=== PATIENT | female | born 1955 | race Caucasian/White ===

== ENCOUNTER 2016-08-17 13:31 | Inpatient (IN) ==
[2016-08-17 14:06] LABS: MANUAL DIFF NEEDED? NO
[2016-08-17 14:12] LABS: BASO% 0.5 % (0.0-0.8); EOS# 0.13 X1000 (0.0-0.7); EOS% 1.5 % (0.0-10.0); HEMATOCRIT 38.1 % (37.0-47.0); HEMOGLOBIN 12.2 g/dL (12.0-16.0); IMM GRAN# 0.04 X1000 (0.0-0.04); IMM GRAN% 0.5 % (0.0-0.5); LYMPH# 1.45 X1000 (1.2-3.4); LYMPH% 16.6 % (20.5-51.1); MCH 28.6 PG (27-31); MCV 89.4 FL (81-99); MONO# 0.38 X1000 (0.11-0.59); MONO% 4.4 % (1.7-9.3); MPV 11.5 FL (7.4-10.4); NEUT% 76.5 % (42.2-75.2); PLT 131 X1000 (130-400); RBC 4.26 XMIL (4.2-5.4)
[2016-08-17 14:21] LABS: INR 0.96; PTT 27.8 Seconds (22.0-36.0)
[2016-08-17 14:25] LABS: AGAP 8; ALBUMIN 2.9 g/dL (3.5-5.0); ALKALINE PHOSPHATASE 83 U/L (32-104); BUN 16 mg/dL (8-22); CALCIUM 8.1 mg/dL (8.8-10.2); CHLORIDE 104 mmol/L (98-107); CK PROFILE 54 U/L (24-173); COSMO 281; GOT 12 U/L (10-30); GPT 9 U/L (10-36); MAGNESIUM 1.8 mg/dL (1.5-2.7); POTASSIUM 5.2 mmol/L (3.5-5.1); SODIUM 134 mmol/L (136-145); TCO2 22 mmol/L (25-35); TOTAL BILIRUBIN 0.26 mg/dL (0.20-1.00); TOTAL PROTEIN 6.2 g/dL (6.3-8.3)
--- NOTE | 2016-08-17 14:26 | Diag Imaging Result Doc PS360 ---
EXAM: CHEST-2 VIEWS HISTORY: CP TECHNIQUE: COMPARISON: 01/15/2014 FINDINGS: There is a left-sided pacemaker. The heart isn't enlarged. There is vascular distention. No consolidation. No pleural effusions. No free air beneath the diaphragm. IMPRESSION: Cardiomegaly with pulmonary edema Electronically signed by Chase Reed 08/17/2016 2:23 PM
[2016-08-17] MEDS ORDERED: LASIX IV ONE (15:03)
--- NOTE | 2016-08-17 15:14 | PROVIDER DOCUMENTATION ---
HPI-Respiratory General - General Chief Complaint: Edema Stated Complaint: fluid retention Time Seen by Provider: 08/17/16 14:44 Allergies/Adverse Reactions: Patient Allergies Allergy/AdvReac Type Severity Reaction Status Date / Time clopidogrel bisulfate * Allergy NAUSEA Verified 01/15/14 10:14 [From Plavix] promethazine HCl * AdvReac Severe NAUSEA Verified 01/15/14 10:14 [From Phenergan] Home Medications: Home Medication List Medication Instructions Recorded Confirmed Last Taken Type Hydrocodone/Acetaminophen [Lortab 1 each PO Q4-6H PRN PRN #12 tablet 04/24/12 Unknown Rx 5-500 Tablet] Isosorbide Dinitrate 60 mg PO DAILY 04/24/12 01/15/14 04/21/12 06:00 History Tramadol [Ultram] 50 mg PO Q6H PRN PRN #15 tablet 02/16/13 01/15/14 Unknown Rx Albuterol Sulfate [Albuterol 8.5 gm IH 4XDAY PRN #1 hfa.aer.ad 01/13/1401/14/14 12:00 Rx Sulfate Hfa] Amoxicillin 1,000 mg PO Q8HR #60 capsule 01/13/14 01/15/14 01/15/14 09:00 Rx Glipizide 5 mg PO DAILY #30 tablet 01/13/14 01/15/14 Unknown Rx Lisinopril/Hydrochlorothiazide 1 each PO DAILY #30 tablet 01/13/14 01/15/1406/25 09:00 Rx [Lisinopril-Hctz 10-12.5 mg Tab] Metformin HCl 500 mg PO BID #60 tablet 01/13/14 01/15/14 Unknown Rx Prednisone 10 mg PO Q8HR #30 tablet 01/13/14 01/15/14 Unknown Rx Benzonatate [Tessalon] 100 mg PO TID PRN PRN #21 capsule 01/15/14 Unknown Rx Levofloxacin [Levaquin] 750 mg PO DAILY #6 tablet 01/15/14 Unknown Rx - History of Present Illness-Resp Nature of Presenting Problem: 61 y/o WF with a PMHx of CAD requiring stent placement, CHF with pacemaker, NIDDM, COPD and Morbid Obesity that presents to the Ed with a 2 month h/o lower extremity swelling that has worsened over the past month. Pt states worsening dyspnea upon exertion, productive cough with yellow sputum production and occasional chest pain. Reports that she does use 3L of oxygen at all times. No other issues reported. Severity in ED: reports: mild Onset/Duration: reports: other (2 months with worsening over the past month) Timing: reports: getting worse Cough Quality/Degree: reports: mild, productive cough, sputum Episode Frequency: chronic episodes Modifying Factors: improves with: exertion Associated Symptoms: reports: chest pain/soreness (with cough), shortness of breath Review of Systems - Adult - REVIEW OF SYSTEMS - ADULT Constitutional: reports: no symptoms reported, fatique. denies: fever Eyes: reports: no symptoms reported. denies: dry eyes, double vision, redness Ears, Nose, Mouth & Throat: reports: no symptoms reported. denies: nose pain, loose teeth Respiratory: reports: cough, shortness of breath Gastrointestinal: reports: no symptoms reported Genitourinary: reports: no symptoms reported Musculoskeletal: reports: no symptoms reported Integumentary: reports: no symptoms reported Neurological: reports: no symptoms reported Psychiatric: reports: no symptoms reported Endocrine: reports: no symptoms reported Hematologic/Lymphatic: reports: no symptoms reported Allergic/Immunologic: reports: no symptoms reported Past History - Adult - PAST MEDICAL HISTORY-ADULT Review of Records: reports: Old Records Reviewed, Nursing Assessment Review, Medications Reviewed Major Childhood Illnesses: reports: denies history Cardiovascular: reports: CAD, CHF, HTN, hyperlipidemia, pacemaker Respiratory: reports: COPD Gastrointestinal: reports: GERD Neurological: reports: TIA Endocrine/Immune: reports: Diabetes, thyroid disorder - PRIOR SURGERIES/PROCEDURES Surgical/Procedure History: reports: cardiac stent, pacemaker - IMMUNIZATION STATUS Childhood Immunizations: UTD, See Nurse Assessment Flu Vaccine: See Nurse Assessment - SOCIAL HISTORY Smoking: cigarettes, greater than 1 pack/day Substance Use: none/never Alcohol Use Frequency: never Living Situation: family Physical Exam-General - PHYSICAL EXAM-ADULT Initial Vital Signs Reviewed: Yes - CONSTITUTIONAL General Appearance: appears well, alert, no apparent distress. negative: slow to respond, obtunded - EYES Eyes: PERRL/EOMI, pink conjunctivae. negative: sclera injected, scleral icterus - HEAD, EARS, NOSE, MOUTH & THROAT HENMT: normocephalic/atraumatic, moist mucous membranes, normal ENT inspection. negative: pharyngeal erythema, tonsillar exudate - NECK Neck: non-tender, full range of motion, supple. negative: C-spine tenderness - RESPIRATORY Respiratory: chest non-tender, lungs clear, rhonchi. negative: crackles, rales , stridor, wheezing - CARDIOVASCULAR Cardiovascular: normal peripheral pulses, regular rate, rhythm, no edema, no murmur - GASTROINTESTINAL (ABDOMEN) Abdominal Exam: normal bowel sounds, non tender, soft. negative: distended, guarding, rigid, rebound, tenderness - LYMPHATIC Lymphatic: no adenopathy - MUSCULOSKELETAL Back Exam: negative: normal inspection, no CVA tenderness, muscle spasm, swelling Extremity: normal range of motion, non-tender. negative: deformity, erythema - SKIN Integumentary: normal color, normal turgor, warm/dry. negative: swelling, tenderness - NEUROLOGIC Neurologic: underground utility locator II-XII nml as tested, grossly normal, no motor/sensory deficits . negative: focal weakness, motor weakness, sensory deficit - PSYCHIATRIC Psych/Mental Status: normal mood/affect, normal thought content, normal thought process, oriented x 3. negative: anxious, disheveled, paranoid Progress - PLAN OF CARE/RESULTS Progress/Plan/Lab Results: Vital Signs - 8 hr 08/17/16 13:35 Temperature 98.5 F Pulse Rate 79 Respiratory Rate 16 Blood Pressure 147/53 O2 Sat by Pulse Oximetry 92 L Laboratory Results - last 24 hr 08/17/16 08/17/16 08/17/16 13:58 13:58 13:58 WBC 8.72 RBC 4.26 Hgb 12.2 Hct 38.1 MCV 89.4 MCH 28.6 MCHC 32.0 L RDW Std Deviation 14.5 Plt Count 131 MPV 11.5 H Immature Gran % (Auto) 0.5 Neut % (Auto) 76.5 H Lymph % (Auto) 16.6 L Campbell % (Auto) 4.4 Eos % (Auto) 1.5 Baso % (Auto) 0.5 Immature Gran # (Auto) 0.04 Neut # (Auto) 6.68 H Lymph # (Auto) 1.45 Campbell # (Auto) 0.38 Eos # (Auto) 0.13 Baso # (Auto) 0.04 PT INR PTT (Actin FS) D-Dimer 0.63 H Sodium 134 L Potassium 5.2 H Chloride 104 Carbon Dioxide 22 L Anion Gap 8 BUN 16 Creatinine 0.9 Estimated GFR/1.73 m2 > 60 BUN/Creatinine Ratio 18 Glucose 301 H Calculated Osmolality 281 Calcium 8.1 L Magnesium 1.8 Total Bilirubin 0.26 AST 12 ALT 9 L Alkaline Phosphatase 83 Creatine Kinase 54 Troponin T Jog-E-Sarbd[place]ak Pept Total Protein 6.2 L Albumin 2.9 L Globulin 3.3 Albumin/Globulin Ratio 0.9 08/17/16 08/17/16 08/17/16 13:58 13:58 13:58 WBC RBC Hgb Hct MCV MCH MCHC RDW Std Deviation Plt Count MPV Immature Gran % (Auto) Neut % (Auto) Lymph % (Auto) Campbell % (Auto) Eos % (Auto) Baso % (Auto) Immature Gran # (Auto) Neut # (Auto) Lymph # (Auto) Campbell # (Auto) Eos # (Auto) Baso # (Auto) PT 10.0 INR 0.96 PTT (Actin FS) 27.8 D-Dimer Sodium Potassium Chloride Carbon Dioxide Anion Gap BUN Creatinine Estimated GFR/1.73 m2 BUN/Creatinine Ratio Glucose Calculated Osmolality Calcium Magnesium Total Bilirubin AST ALT Alkaline Phosphatase Creatine Kinase Troponin T < 0.010 Mps-V-Tfznivrlpil Pept 1061 H Total Protein Albumin Globulin Albumin/Globulin Ratio Orders Category Date Time Status Cardiac Monitoring DIRECTED Care 08/17/16 13:59 Active Oxygen Therapy- ED Nursing DIRECTED Care 08/17/16 13:59 Active Saline Loc NOW Care 08/17/16 13:59 Active CHEST-2 VIEWS [RAD] Stat Exams 08/17/16 13:59 Completed CBC WITH ELECTRONIC DIFF [HEME] Stat Lab 08/17/16 13:58 Completed CK PROFILE [SP CHEM] Stat Lab 08/17/16 13:58 Completed COMPREHENSIVE METABOLIC PANEL [CHEM] Stat Lab 08/17/16 13:58 Completed D-DIMER [CHEM] Stat Lab 08/17/16 13:58 Completed MAGNESIUM [CHEM] Stat Lab 08/17/16 13:58 Completed PRO B-NATRIURETIC PEPTIDE Stat Lab 08/17/16 13:58 Completed PROTIME WITH INR [COAG] Stat Lab 08/17/16 13:58 Completed PTT [COAG] Stat Lab 08/17/16 13:58 Completed TROPONIN T Stat Lab 08/17/16 13:58 Completed Furosemide [Lasix] Med 08/17/16 15:03 Once 40 mg IV NOW ONE EKG [EKG] Stat Ther 08/17/16 13:59 Ordered Result Diagrams: 08/17/16 13:58 08/17/16 13:58 - CONSULTS/PCP/HOSPITALIST Notification #1 *Consult/PCP/Hospitalist*: Mrs. Gallardo Time Discussed: 15:17 Consult Disposition: Admit Departure - Departure Date of Disposition Decision: 08/17/16 Time of Disposition Decision: 15:17 DIAGNOSIS: Acute exacerbation of CHF (congestive heart failure) Qualifiers: Congestive heart failure type: unspecified congestive heart failure type Qualified Code(s): I50.9 - Heart failure, unspecified Disposition: ADMITTED INPATIENT 09 Certified Medical Emergency: Emergent Condition: Good Referrals and Follow-Ups: None,PCP [Primary Care Provider] - - Critical Care Note This patient required my direct & personal management of CC.: No
--- NOTE | 2016-08-17 15:33 | EKG Report ---
Test Performed on : 08/17/2016 1:44:23 PM Test Reason : Chest Pain Blood Pressure : / mmHG Vent. Rate : 071 BPM Atrial Rate : 071 BPM P-R Int : 168 ms QRS Dur : 078 ms QT Int : 382 ms P-R-T Axes : 037 018 136 degrees QTc Int : 415 ms Normal sinus rhythm. Cannot rule out Inferior infarct (cited on or before 15-JAN-2014) Possible Anterior infarct , age undetermined ST \T\ T wave abnormality, consider lateral ischemia Abnormal ECG When compared with ECG of 15-JAN-2014 10:51, T wave inversion more evident in Lateral leads Unconfirmed Result
--- NOTE | 2016-08-17 15:38 | ED EKG INTERP ---
This chart was entered by Sarah Arias Scribe, acting as scribe for Dago Castro MD. EKG Interpretation - EKG Time of EKG reading by physician:: 13:44 EKG Read and Signed by:: Dago Castro EKG Interpretation (*Must complete 3 of following elements*): Abnormal Rate: 71 Rhythm: NSR Hudson: normal QRS: other (CANNOT RULE OUT INFERIOR INFARCT OR POSS ANTERIOR INFARCT, AGE UNDETERMINED, ST & T WAVE ABNORMALITY, CONSIDER LATERAL ISCHEMIA Q 2,3,AVF OLD ND, T-WAVE INVERSION1, AVL -?LATERAL ISCHEMIA - TANA) This chart was documented by the indicated scribe, (Sarah Arias Scribe) and accurately reflects the services I performed and decisions made by me, Dago Castro MD, as attested by the provider's signature.
--- NOTE | 2016-08-17 16:46 | HISTORY AND PHYSICAL ---
HISTORY OF PRESENT ILLNESS: Ms. Marti says she has been in [place], just recently came back about a month ago. She stated that a couple months ago she was in [place] and she was treated for pneumonia. She has noted the last 2 weeks though she has had increased swelling, progressively increased dyspnea on exertion, increased orthopnea, and some paroxysmal nocturnal dyspnea. She has had a little bit chest pain off and on. Denies any fever or chills. PAST MEDICAL HISTORY: 1. COPD. 2. I think she has had a history of congestive heart failure by report. 3. History of diabetes mellitus type 2. 4. History of hypertension. 5. History of hypercholesterolemia. ALLERGIES: Clopidogrel or Plavix, levofloxacin, metformin, trazodone, and apparently she has more. FAMILY HISTORY: Noncontributory. SOCIAL HISTORY: History of smoking. No alcohol, no illicit drugs. REVIEW OF SYSTEMS: General: She is steadily gaining some weight, although she has not measured or recorded, but she feels like she gained fluid weight, increased pedal edema. HEENT: Unremarkable. Respiratory: Increased work of breathing. Increased dyspnea. Increased orthopnea. Paroxysmal nocturnal dyspnea. GI/: No change in bowels. No gross hematuria or dysuria. PHYSICAL EXAM IN THE EMERGENCY ROOM: Vital signs: Temperature 98.5 degrees, pulse 79, respirations 16, blood pressure 147/53. HEENT: Pupils are equal and round. CVP is about 10 cm water pressure from angle of Jalen. Lungs: With rales at the bases. Decreased breath sounds both bases. No wheezes. Cardiovascular: PMI diffuse. Regular rhythm and rate. Abdomen: Soft. No hepatojugular reflux. Extremities: With 3+ edema, more prominent in the left than the right. Height is 5 feet 1 inch. Weight is 157 pounds. DIAGNOSTIC DATA: Labs: White count 8720, hematocrit 38, platelet count 331,000. Sodium 134, potassium 5.2, chloride 104, bicarb 22, BUN 16, creatinine 0.9, blood sugar 301. Calculated osmolality 281. CPK is 54, troponin less than 0.01. ProBNP was 1061. Albumin 2.9. PT was 10, PTT was 27. Chest x-ray: Cardiomegaly with pulmonary edema and vascular distention consistent with pulmonary venous hypertension. ASSESSMENT AND PLAN: 1. Congestive heart failure. Suspect this is diastolic congestive heart failure. I will recheck an echocardiogram, I do not know if we have documented it in the last couple years, and look at left ventricular function. We will diurese with Lasix 40 mg IV q.12 hours, give her supplemental O2, and watch her afterload and preload. I will continue her previous medications of lisinopril-hydrochlorothiazide combination 50 mg 10/12.5 daily, her magnesium supplement. She is on isosorbide mononitrate so I presume she has underlying coronary artery disease as well. We will try and obtain some more history on this. She has been having chest pain. I do not see any evidence that she is having active ischemia. We will check serial EKGs and cardiac enzymes. 2. Chronic obstructive pulmonary disease exacerbation. 3. Hypertension. 4. Diabetes mellitus type 2. We will check pattern sugars, put her on sliding scale, supplement electrolytes as needed. cc: Deni Nowak MD
[2016-08-17] MEDS ORDERED: NITROGLYCERIN SL PRN (17:06)
[2016-08-17] MEDS: LASIX IV SCH (18:53)
[2016-08-17] MEDS ORDERED: NICODERM PATCH TD PRN (18:54)
[2016-08-17] MEDS ORDERED: ADVAIR 250/50 DISKUS INH SCH (19:30)
[2016-08-18] MEDS: LASIX IV SCH ×2 (04:53→18:23)
[2016-08-18 06:07] LABS: MANUAL DIFF NEEDED? NO
[2016-08-18 06:28] LABS: BASO% 0.2 % (0.0-0.8); EOS# 0.12 X1000 (0.0-0.7); EOS% 1.2 % (0.0-10.0); HEMOGLOBIN 12.3 g/dL (12.0-16.0); IMM GRAN# 0.05 X1000 (0.0-0.04); IMM GRAN% 0.5 % (0.0-0.5); LYMPH# 1.64 X1000 (1.2-3.4); LYMPH% 16.9 % (20.5-51.1); MCH 28.5 PG (27-31); MCHC 31.5 g/dL (33-37); MCV 90.3 FL (81-99); MONO# 0.59 X1000 (0.11-0.59); MONO% 6.1 % (1.7-9.3); MPV 11.7 FL (7.4-10.4); NEUT% 75.1 % (42.2-75.2); PLT 146 X1000 (130-400); RBC 4.32 XMIL (4.2-5.4)
[2016-08-18] MEDS: HUMALOG SUBQ SCH ×4 (06:40→22:42)
[2016-08-18 06:50] LABS: AGAP 8; BUN 20 mg/dL (8-22); CALCIUM 8.9 mg/dL (8.8-10.2); CHLORIDE 105 mmol/L (98-107); COSMO 285; MAGNESIUM 1.6 mg/dL (1.5-2.7); SODIUM 141 mmol/L (136-145); TCO2 28 mmol/L (25-35)
[2016-08-18 06:53] LABS: HEMOGLOBIN A1C 9.9 % (4.8-6.0)
[2016-08-18] MEDS ORDERED: VENTOLIN HFA INH SCH (07:30)
[2016-08-18] MEDS ORDERED: AMARYL PO SCH (08:00)
[2016-08-18] MEDS: KLOR-CON PO SCH (08:10)
[2016-08-18] MEDS: PRINZIDE 10/12.5MG PO SCH (08:10)
[2016-08-18] MEDS: COREG PO SCH (08:11)
[2016-08-18] MEDS: SINGULAIR PO SCH (08:11)
[2016-08-18] MEDS: ASPIRIN PO SCH (08:11)
[2016-08-18] MEDS: MAG-OX PO SCH (08:11)
[2016-08-18] MEDS: IMDUR PO SCH (08:11)
[2016-08-18] MEDS: NEXIUM PO SCH (08:11)
--- NOTE | 2016-08-18 11:58 | PROGRESS NOTE ---
DATE: 08/18/2016 SUBJECTIVE: Ms. Marti is sitting up in bed, in no acute distress. OBJECTIVE: Vital Signs: Temperature is 97.3 degrees, heart rate 60, respirations 17, blood pressure 163/76, O2 is 97% on 3 L nasal cannula. HEENT: Atraumatic, normocephalic. PERRLA. Neck: Supple. Trachea midline. CV: No murmurs, gallops, or rubs noted. Pulmonary: Bilateral breath sounds decreased in bilateral bases. No wheezes. Abdomen: Soft, nontender. Positive bowel sounds in 4 quadrants. Extremities: There is 1 to 2+ edema, improved from yesterday on admission. Laboratory Data: White count 9, hemoglobin 12, hematocrit 39, platelet count is 146,000. Chemistry: Sodium 141, potassium 5, BUN 20, creatinine 0.9, blood glucose was 124. Hemoglobin A1c was 9.9. ProBNP 6098. TSH was 1.2. ASSESSMENT AND PLAN: 1. Congestive heart failure, suspected diastolic heart failure. Waiting on echocardiogram. Continue with diuresis. On supplemental oxygen. 2. Chronic obstructive pulmonary disease exacerbation, improved. 3. Hypertension. Continue home medications. 4. Diabetes mellitus type 2, uncontrolled. We will continue patterned blood sugars and sliding scale insulin. 5. Coronary artery disease. 6. Gastroesophageal reflux disease. Continue proton pump inhibitor. 7. Hyperlipidemia. Continue statin. 8. Transient ischemic attack history. 9. Hypothyroidism. However, I do not see any thyroid medication that the patient has come in on. 10. Further recommendations to follow diagnostic data as well as physician evaluation. Dictated by INDY Rae for Deni Nowak MD cc: Deni Nowak MD
[2016-08-18] MEDS: MOTRIN PO PRN ×2 (13:49→21:05)
--- NOTE | 2016-08-18 16:12 | ECHO REPORT ---
ORDER DATE: 08/18/2016 INTERPRETING PHYSICIAN: Dr. Cruz Lo ECHOCARDIOGRAPHIC MEASUREMENTS: Interventricular septum: 1.6 cm. Left ventricular posterior wall: 1.3 cm. Diastolic diameter: 4.5 cm. Left atrium: 5 cm. Aortic root: 3.3 cm. SUMMARY OF THE 2-DIMENSIONAL IMAGING: Technically suboptimal study. Very poor acoustic window. Normal left ventricular cavity size. There is left ventricular hypertrophy. Estimated ejection fraction of 60%. Endocardium not well visualized in all views. Mitral valve was normal. Tricuspid valve normal. Pulmonic valve not well visualized. Aortic valve leaflets are trileaflet. There is peak velocity across the aortic valve less than 2 m/sec. There is no aortic stenosis or regurgitation. There is trace tricuspid regurgitation. Trace mitral regurgitation. Peak velocity across the tricuspid valve less than 2 m/sec. There is no pericardial effusion. cc: MD Deni Lane MD
[2016-08-18] MEDS: PRAVACHOL PO SCH (20:51)
[2016-08-19] MEDS: LASIX IV SCH ×2 (05:38→17:15)
[2016-08-19] MEDS: NEXIUM PO SCH (06:01)
[2016-08-19] MEDS: HUMALOG SUBQ SCH ×4 (06:13→21:17)
[2016-08-19 07:11] LABS: CALCIUM 8.7 mg/dL (8.8-10.2); POTASSIUM 4.1 mmol/L (3.5-5.1)
[2016-08-19] MEDS: ASPIRIN PO SCH (08:20)
[2016-08-19] MEDS: MAG-OX PO SCH (08:20)
[2016-08-19] MEDS: SINGULAIR PO SCH (08:20)
[2016-08-19] MEDS: COREG PO SCH (08:20)
[2016-08-19] MEDS: KLOR-CON PO SCH (08:20)
[2016-08-19] MEDS: IMDUR PO SCH (08:20)
[2016-08-19] MEDS: PRINZIDE 10/12.5MG PO SCH (08:20)
[2016-08-19] MEDS: CLARITIN PO SCH (11:39)
--- NOTE | 2016-08-19 13:57 | PROGRESS NOTE ---
DATE: 08/19/2016 SUBJECTIVE: She is breathing better, doing better. She does feel like her legs are going down, her swelling. She is not having any chest pain at this point. OBJECTIVE: Vital signs: Temp 97.7 degrees, pulse 63, respirations 20, blood pressure 155/80. HEENT: Pupils are equal, round. Lungs: Clear in all lung velez. Cardiovascular: Regular rhythm and rate without murmur or S3. Abdomen: Soft. Skin: Warm and dry. : Urine output collected was over 800, almost 900 mL. LABS: Reviewed from yesterday. Blood sugars are well controlled. Creatinine 1.1. ASSESSMENT AND PLAN: 1. Congestive heart failure. Suspect diastolic heart failure. Her echocardiogram was done yesterday and read. Technically suboptimal study. Very poor acoustic windows. Normal left ventricular cavity size. Left ventricular hypertrophy. Estimated ejection fraction 60%. Did not see any definite valvular dysfunction. Seems to be responding to diuresis. Continue present course. 2. Chronic obstructive pulmonary disease. 3. Hypertension. 4. Diabetes mellitus type 2. Continue to follow sugars. 5. Coronary artery disease. 6. Gastroesophageal reflux. 7. History of hyperlipidemia. cc: Deni Nowak MD
--- NOTE | 2016-08-19 15:24 | Diag Imaging Result Doc PS360 ---
US ABDOMEN-COMPLETE - 08/19/2016 INDICATION: umbilical hernia COMPARISON: None FINDINGS: The exam is technically challenging due to the patient's huge body size. The patient is also not nothing by mouth. There is moderate fatty change of the liver. The gallbladder, pancreas, spleen, and both kidneys are normal. Spleen size is 12.2 x 11.1 x 4.7 cm. Common bile duct measures 6 mm. Aorta, IVC, and main portal vein are patent. There is no umbilical hernia visible. IMPRESSION: Fatty change of the liver. Otherwise no acute disease. Electronically signed by Misbah Crain 08/19/2016 3:22 PM
--- NOTE | 2016-08-19 15:45 | PROGRESS NOTE ---
DATE: 08/19/2016 ADDENDUM REPORT: She has noticed a little more irritation. She has a periumbilical hernia superior to the umbilicus, and I am going to see if I can get general surgery just to look at that and make an evaluation. cc: Deni Nowak MD
[2016-08-19] MEDS: PRAVACHOL PO SCH (21:17)
[2016-08-19] MEDS: MOTRIN PO PRN (22:27)
[2016-08-20] MEDS: LASIX IV SCH (05:29)
[2016-08-20] MEDS: HUMALOG SUBQ SCH ×2 (06:18→10:58)
[2016-08-20] MEDS: NEXIUM PO SCH (06:18)
[2016-08-20] MEDS: ASPIRIN PO SCH (10:35)
[2016-08-20] MEDS: SINGULAIR PO SCH (10:35)
[2016-08-20] MEDS: CLARITIN PO SCH (10:35)
[2016-08-20] MEDS: MAG-OX PO SCH (10:35)
[2016-08-20] MEDS: PRINZIDE 10/12.5MG PO SCH (10:35)
[2016-08-20] MEDS: KLOR-CON PO SCH (10:35)
[2016-08-20] MEDS: IMDUR PO SCH (10:35)
[2016-08-20] MEDS: COREG PO SCH (10:35)
[2016-08-20 13:57] VITALS: BP 110/89
--- NOTE | 2016-08-20 14:54 | DISCHARGE SUMMARY ---
ADMISSION DATE: 08/17/2016 DISCHARGE DATE: 08/20/2016 Ms. Marti has recently moved here from [place]. Moved here about a month ago. Couple months ago she was in [place] and was treated for pneumonia inpatient. Past 2 weeks she has had increased swelling, progressively increased dyspnea on exertion, increased orthopnea and paroxysmal nocturnal dyspnea. Presented to the emergency room. Appeared to be in congestive heart failure. PAST MEDICAL HISTORY: 1. COPD. 2. I think she has a history of systolic congestive heart failure. 3. Diabetes mellitus type 2. 4. Hypertension. 5. Hypercholesterolemia. ALLERGIES: Allergic to Plavix, levofloxacin, metformin, trazodone. CHEST X-RAY: On presentation cardiomegaly with pulmonary edema, pulmonary venous hypertension. We did do an echocardiogram while she is here to evaluate left ventricular function and she appears to have normal ejection fraction. Appears she has congestive heart failure with normal ejection fraction. She responded well to diuresis and we did do an abdominal ultrasound. She has some fatty changes in the liver but otherwise unremarkable. [place] she could go home on 08/20/2016. DISCHARGE MEDICATIONS: Aspirin 325 mg a day. Coreg at 12.5 mg daily. Nexium 40 mg a day. Advair 250/50 one 1 puff b.i.d. Lasix 40 mg p.o. b.i.d. She takes Motrin 600 mg as needed. Imdur 60 mg a day. Lisinopril hydrochlorothiazide 10/12.5 one a day. Claritin 10 mg a day. Mag-Ox 400 mg a day. NicoDerm patch. Let her have some more take-home 2 weeks worth. Klor-Con 20 mEq daily. Pravachol 40 mg a day. We want her to follow up with primary care. Note that lab done, chemistries repeated on the looked good with creatinine 1.1. Potassium 4.1, sodium 140, chloride 99. cc: Deni Nowak MD
== END 2016-08-20 16:11 | disposition home or self-care (01) ==
LOC: ED 13:31 → 3N 16:49
PROVIDERS: ATTEND Emergency Medicine

== ENCOUNTER 2016-10-07 18:53 | Inpatient (IN) ==
[2016-10-07] MEDS ORDERED: ASPIRIN PO STA (19:04)
[2016-10-07] MEDS ORDERED: LASIX IV ONE (19:20)
[2016-10-07 19:41] LABS: MANUAL DIFF NEEDED? NO
[2016-10-07 19:49] LABS: BASO% 0.5 % (0.0-0.8); HEMATOCRIT 39.8 % (37.0-47.0); HEMOGLOBIN 12.9 g/dL (12.0-16.0); IMM GRAN# 0.05 X1000 (0.0-0.04); IMM GRAN% 0.5 % (0.0-0.5); LYMPH# 1.61 X1000 (1.2-3.4); MCH 27.9 PG (27-31); MCHC 32.4 g/dL (33-37); MONO# 0.61 X1000 (0.11-0.59); MONO% 6.1 % (1.7-9.3); MPV 12.2 FL (7.4-10.4); NEUT% 74.9 % (42.2-75.2); PLT 161 X1000 (130-400); RBC 4.63 XMIL (4.2-5.4)
[2016-10-07 19:55] LABS: INR 0.97; PROTIME 10.2 Seconds (9.2-11.7); PTT 29.6 Seconds (22.0-36.0)
[2016-10-07 20:04] LABS: AGAP 7; ALBUMIN 3.4 g/dL (3.5-5.0); ALKALINE PHOSPHATASE 81 U/L (32-104); BUN 12 mg/dL (8-22); CALCIUM 8.7 mg/dL (8.8-10.2); CHLORIDE 100 mmol/L (98-107); CK PROFILE 74 U/L (24-173); COSMO 272; GOT 15 U/L (10-30); GPT 8 U/L (10-36); MAGNESIUM 1.7 mg/dL (1.5-2.7); POTASSIUM 4.2 mmol/L (3.5-5.1); SODIUM 136 mmol/L (136-145); TCO2 29 mmol/L (25-35); TOTAL BILIRUBIN 0.34 mg/dL (0.20-1.00); TOTAL PROTEIN 7.2 g/dL (6.3-8.3)
--- NOTE | 2016-10-07 20:33 | PROVIDER DOCUMENTATION ---
This chart was entered by Indigo Loza Scribe, acting as scribe for Serjio Alvarado MD. HPI-General Adult - General Chief Complaint: Chest Pain Stated Complaint: CHEST PAIN/SOB Time Seen by Provider: 10/07/16 19:04 Source: patient Allergies/Adverse Reactions: Patient Allergies Allergy/AdvReac Type Severity Reaction Status Date / Time clopidogrel bisulfate * Allergy NAUSEA Verified 01/15/14 10:14 [From Plavix] levofloxacin Allergy Unknown Verified 08/17/16 15:11 metformin Allergy Unknown Verified 08/17/16 15:11 trazodone Allergy Unknown Verified 08/17/16 15:11 promethazine HCl * AdvReac Severe NAUSEA Verified 01/15/14 10:14 [From Phenergan] Home Medications: Home Medication List Medication Instructions Recorded Confirmed Last Taken Type Albuterol Sulfate [Ventolin Hfa] 1 puff PO DAILY 08/17/16 08/17/16 08/17/16 08: 00 History Aspirin 325 mg PO DAILY 08/17/16 08/17/16 08/17/16 08:00 History Carvedilol 12.5 mg PO BID 08/17/16 08/20/16 08/17/16 08:00 History Esomeprazole [Nexium] 40 mg PO DAILY 08/17/16 08/17/16 08/17/16 08:00 History Fluticasone/Salmet 250/50 INH 1 puff PO BID 08/17/16 08/17/16 08/17/16 08:00 History [Advair 250/50 Diskus] Glimepiride 2 mg PO DAILY 08/17/16 08/17/16 08/17/16 08:00 History Ibuprofen 600 mg PO PRN PRN 08/17/16 08/17/16 Unknown History Isosorbide Mononitrate [Isosorbide 60 mg PO DAILY 08/17/16 08/17/16 08/17/16 08: 00 History Mononitrate ER] Lisinopril/Hydrochlorothiazide 50 mg PO DAILY 08/17/16 08/17/16 08/17/16 08:00 History [Lisinopril-Hctz 10-12.5 mg Tab] Magnesium 400 mg PO DAILY 08/17/16 08/17/16 Unknown History Montelukast [Singulair] 10 mg PO DAILY 08/17/16 08/17/16 08/17/16 08:00 History Nitroglycerin [Nitrostat] 1 tab PO PRN PRN 08/17/16 08/17/16 Unknown History PRAVAstatin [Pravachol] 40 mg PO DAILY 08/17/16 08/17/16 08/17/16 08:00 History Potassium 20 meq PO DAILY 08/17/16 08/17/16 08/17/16 08:00 History Furosemide [Lasix] 40 mg PO BID #80 tablet 08/20/16 Unknown Rx Nicotine Patch [Nicoderm Patch] 21 mg TD DAILY PRN PRN #14 08/20/16 Unknown Rx patch.[id number] - History of Present Illness -Gen Adult Nature of Presenting Problems: 61 year old F presents to the ED with a cc of bilateral leg swelling with an onset of 1 week. PT states that she has also had worsening shortness of breath and cough with some nausea. PT denies chest pain. Severity: reports: mild Onset/Duration: reports: 1 week ago Timing: reports: getting worse Associated Symptoms: reports: nausea, shortness of breath, other (edema) Similar Symptoms Previously?: No Recently seen or treated by another doctor?: No Review of Systems - Adult - REVIEW OF SYSTEMS - ADULT Constitutional: denies: chills, fever Eyes: reports: no symptoms reported Ears, Nose, Mouth & Throat: reports: no symptoms reported Cardiovascular: reports: edema. denies: chest pain, palpitations Respiratory: reports: cough, shortness of breath Gastrointestinal: reports: nausea. denies: vomiting Genitourinary: reports: no symptoms reported Musculoskeletal: reports: no symptoms reported Integumentary: reports: no symptoms reported Neurological: reports: no symptoms reported Psychiatric: reports: no symptoms reported Endocrine: reports: no symptoms reported Hematologic/Lymphatic: reports: no symptoms reported Allergic/Immunologic: reports: no symptoms reported All Other Systems: Reviewed and Negative Past History - Adult - PAST MEDICAL HISTORY-ADULT Review of Records: reports: Nursing Assessment Review, Medications Reviewed Major Childhood Illnesses: reports: denies history Cardiovascular: reports: CAD, CHF, HTN, hyperlipidemia, pacemaker Respiratory: reports: COPD Gastrointestinal: reports: GERD Neurological: reports: TIA Endocrine/Immune: reports: Diabetes, thyroid disorder - PRIOR SURGERIES/PROCEDURES Surgical/Procedure History: reports: cardiac stent, pacemaker - IMMUNIZATION STATUS Childhood Immunizations: UTD, See Nurse Assessment Flu Vaccine: See Nurse Assessment - SOCIAL HISTORY Smoking: cigarettes Provider spent 3-5 mins advising pt. on dangers of tobacco.: Discussed manners to quit use, and f/u contacts for add'l counseling. Substance Use: none/never Alcohol Use Frequency: never Physical Exam-General - PHYSICAL EXAM-ADULT Initial Vital Signs Reviewed: Yes - CONSTITUTIONAL General Appearance: alert, no apparent distress, obese - RESPIRATORY Respiratory: rales (bilateral bases), wheezing (bilateral bases) - CARDIOVASCULAR Cardiovascular: normal peripheral pulses, regular rate, rhythm, no edema - GASTROINTESTINAL (ABDOMEN) Abdominal Exam: normal bowel sounds, non tender, soft - MUSCULOSKELETAL Back Exam: normal inspection, no CVA tenderness, no vertebral tenderness Extremity: pedal edema (4+ bilateral pedal edeme to upper thighs) - SKIN Integumentary: normal color, normal turgor, warm/dry - PSYCHIATRIC Psych/Mental Status: normal mood/affect, normal thought content, normal thought process, oriented x 3 Progress - PLAN OF CARE/RESULTS Progress/Plan/Lab Results: Vital Signs - 8 hr 10/07/16 19:14 Temperature 98.3 F Pulse Rate 69 Respiratory Rate 20 Blood Pressure 200/80 O2 Sat by Pulse Oximetry 95 Orders Category Date Time Status Cardiac Monitoring DIRECTED Care 10/07/16 19:04 Active Saline Loc NOW Care 10/07/16 19:04 Active CHEST-2 VIEWS [RAD] Stat Exams 10/07/16 19:04 Ordered CBC WITH ELECTRONIC DIFF [HEME] Stat Lab 10/07/16 19:04 Uncollected CK PROFILE [SP CHEM] Stat Lab 10/07/16 19:04 Uncollected COMPREHENSIVE METABOLIC PANEL [CHEM] Stat Lab 10/07/16 19:04 Uncollected D-DIMER [CHEM] Stat Lab 10/07/16 19:04 Uncollected MAGNESIUM [CHEM] Stat Lab 10/07/16 19:04 Uncollected PRO B-NATRIURETIC PEPTIDE Stat Lab 10/07/16 19:04 Uncollected PROTIME WITH INR [COAG] Stat Lab 10/07/16 19:04 Uncollected PTT [COAG] Stat Lab 10/07/16 19:04 Uncollected TROPONIN T Stat Lab 10/07/16 19:04 Uncollected Aspirin Med 10/07/16 19:04 Discontinued 325 mg PO STAT STA EKG [EKG] Stat Ther 10/07/16 18:58 Ordered Result Diagrams: 10/07/16 19:19 10/07/16 19:19 - EKG 1 Time of EKG reading by physician:: 19:08 EKG Read and Signed by:: Serjio Alvarado EKG Interpretation (*Must complete 3 of following elements*): Abnormal Rate: 75 Rhythm: NSR QRS: LVH ST Wave: non-specific ST changes Comments: possible LAE - XRAY 1 XRAY Study: Chest Impression: Abnormal (cardiomegaly, pulm edema) - CONSULTS/PCP/HOSPITALIST Notification #1 *Consult/PCP/Hospitalist*: Dr. Smith(hospitalist) Time Discussed: 20:32 Consult Disposition: Admit Departure - Departure Date of Disposition Decision: 10/07/16 Time of Disposition Decision: 20:30 DIAGNOSIS: Acute exacerbation of CHF (congestive heart failure) Disposition: ADMITTED INPATIENT 09 Certified Medical Emergency: Emergent Condition: Good Referrals and Follow-Ups: None,PCP [Primary Care Provider] - - Critical Care Note This patient required my direct & personal management of CC.: No This chart was documented by the indicated scribe, (Indigo oLza Scribe) and accurately reflects the services I performed and decisions made by me, Serjio Alvarado MD, as attested by the provider's signature.
[2016-10-07 21:30] LABS: URINE CULTURE NEEDED? NO; URINE MICRO REVIEW NEEDED? NO; URINE SOURCE CATH
--- NOTE | 2016-10-07 21:34 | Diag Imaging Result Doc PS360 ---
EXAM: CHEST-2 VIEWS HISTORY: CP TECHNIQUE: COMPARISON: 08/17/2016 FINDINGS: There is a left-sided pacemaker. The heart remains enlarged. The vessels remain distended. I believe there are tiny pleural effusions. Increased density in the lower right lung is similar to the prior exam. IMPRESSION: Stable chest. A CT may be beneficial since there has been no interval change since the prior exam. Electronically signed by Chase Reed 10/07/2016 9:31 PM
[2016-10-07 21:41] LABS: BILIRUBIN URINE NEGATIVE (NEGATIVE); BLOOD URINE NEGATIVE (NEGATIVE); COLOR STRAW; GLUCOSE URINE NEGATIVE (NEGATIVE); LEUKOCYTES URINE NEGATIVE (NEGATIVE); NITRITE URINE NEGATIVE (NEGATIVE); PROTEIN URINE NEGATIVE (NEGATIVE); SP GRAVITY URINE 1.002; TURBIDITY URINE CLEAR (CLEAR); UROBILINOGEN URINE NORMAL (NORMAL)
[2016-10-07 21:42] LABS: UR EPITHELIAL CELLS <10 /HPF (<10); URINE BACTERIA NEGATIVE /HPF; URINE RBC <10 /HPF (<10); URINE WBC <10 /HPF (<10)
[2016-10-07] MEDS ORDERED: SALINE LOCK IV FLUID XX ONE (23:08)
[2016-10-07] MEDS ORDERED: MOTRIN PO PRN (23:16)
[2016-10-07] MEDS ORDERED: VENTOLIN HFA INH PRN (23:16)
[2016-10-07] MEDS: LOVENOX SUBQ SCH (23:26)
[2016-10-07] MEDS: LASIX IV SCH (23:26)
[2016-10-07] MEDS: NICODERM PATCH TD PRN (23:26)
[2016-10-07] MEDS ORDERED: NITROGLYCERIN SL SCH (23:30)
--- NOTE | 2016-10-07 23:53 | HISTORY AND PHYSICAL ---
CHIEF COMPLAINT: Shortness of breath. HISTORY OF PRESENT ILLNESS: This is a 61-year-old female with reported history of CHF who presents with chest pain it looks like, that is what her ER complaint was, but she describes dyspnea. She has had swelling in her legs bilaterally for 1 week, worsening shortness of breath with exertion, some cough, no fevers, chills, some nausea, some chest pressure across her precordium, pressure-like, not sharp, nonradiating, not severe. She does report orthopnea. She does report PND. She also reports a history of CHF. She has a history of CAD status post PCI. I think it was 12 years ago. She has seen Dr. Ortez. She has not been here locally. She came in for evaluation. She was felt clinically to have CHF and she was admitted as such. PAST MEDICAL HISTORY: 1. Reported CHF, unknown ejection fraction. 2. Hypertension. 3. Dyslipidemia. 4. Chronic obstructive pulmonary disease. 5. GERD. 6. Transient ischemic attack. 7. Diabetes type 2, noninsulin dependent. PAST SURGICAL HISTORY: 1. Percutaneous coronary intervention. 2. Pacemaker placement. SOCIAL HISTORY: No tobacco or ethanol currently. She lives with her aunt. She is in the process of going to a regular apartment. ALLERGIES: Plavix. Levaquin. Metformin which she is currently taking reportedly. Trazodone. Phenergan. REVIEW OF SYSTEMS: Ten systems reviewed. Otherwise negative. PHYSICAL EXAMINATION: VITAL SIGNS: Blood pressure 180/76, heart rate is 77, respiratory rate 15, temperature 98.3 degrees, 95% on 2 L. GENERALLY: Well-developed female in no acute distress. HEAD: Normocephalic, atraumatic. Eye exam, pupils equally round, reactive to light. Extraocular movements were intact. EAR/NOSE/THROAT: She had moist mucous membranes. NECK: Supple. CARDIOVASCULAR: Regular rate and rhythm. No murmurs, gallops, or rubs. PULMONARY: Bilateral breath sounds. Clear to auscultation. GI: Soft, nontender, nondistended. Bowel sounds are positive. EXTREMITY: She had erythema bilaterally with some vesicular bullae that have ruptured. 2+ pitting edema to midshin. NEUROLOGICAL: Nonfocal. PULMONARY: She had diffuse rales. LABORATORY DATA: Unremarkable. Creatinine 0.7, proBNP of 4372. CBC okay. Coagulase okay. D- dimer was mildly elevated. Urine was negative. ASSESSMENT: 1. This is a 61-year-old female with known congestive heart failure presenting with what I feel is clinically congestive heart failure. Her chest x-ray shows interstitial infiltrates, bilateral pleural effusions, but was read as unchanged. Her EKG was nonischemic. Put her on CHF exacerbation, we will continue input and output, daily weights, IV Lasix, monitor for clinical improvement. Get an echocardiogram. May consider Cardiology consult, pending her echocardiogram or at the discretion of the primary team. We will do serial cardiac enzymes and monitor on telemetry. 2. Elevated D-dimer. I think it is probably going to be a red yoder, but we will do the inevitable CT angiogram to evaluate for pulmonary embolus which is unlikely and doppler her lower extremities because she does have swelling. At this point we will do DVT prophylaxis change pending results of her computed tomography angiography. 3. Diabetes. Appears well controlled. We will continue to follow and obtain treatment. Continue to monitor. She is already on a good regimen for CAD, CHF, Imdur, lisinopril, Coreg. She may need Aldactone pending the results of her studies. DISPOSITION: Pending her clinical course, probably 1-2 days in the hospital. She is unattached at this point. cc: Claudio Smith MD
[2016-10-08] MEDS: NITROGLYCERIN TOP SCH ×5 (00:10→22:40)
[2016-10-08 04:41] LABS: HEMATOCRIT 38.6 % (37.0-47.0); HEMOGLOBIN 12.2 g/dL (12.0-16.0); MCH 28.2 PG (27-31); MCHC 31.6 g/dL (33-37); MCV 89.4 FL (81-99); MPV 12.6 FL (7.4-10.4); RBC 4.32 XMIL (4.2-5.4)
[2016-10-08 04:54] LABS: HEMOGLOBIN A1C 8.1 % (4.8-6.0)
[2016-10-08 05:11] LABS: AGAP 6; BUN 14 mg/dL (8-22); CALCIUM 8.6 mg/dL (8.8-10.2); CHLORIDE 101 mmol/L (98-107); COSMO 284; MAGNESIUM 1.5 mg/dL (1.5-2.7); POTASSIUM 4.1 mmol/L (3.5-5.1); SODIUM 140 mmol/L (136-145); TCO2 33 mmol/L (25-35)
--- NOTE | 2016-10-08 05:23 | EKG Report ---
Test Performed on : 10/07/2016 7:08:30 PM Test Reason : cp Blood Pressure : / mmHG Vent. Rate : 075 BPM Atrial Rate : 075 BPM P-R Int : 166 ms QRS Dur : 080 ms QT Int : 384 ms P-R-T Axes : 026 048 -58 degrees QTc Int : 428 ms Normal sinus rhythm. Possible Left atrial enlargement Left ventricular hypertrophy Cannot rule out Anterior infarct (cited on or before 15-JAN-2014) ST \T\ T wave abnormality, consider inferior ischemia Abnormal ECG When compared with ECG of 17-AUG-2016 13:44, Minimal criteria for Inferior infarct are no longer present Questionable change in initial forces of Anterior leads T wave inversion now evident in Inferior leads T wave inversion no longer evident in Lateral leads Unconfirmed Result
[2016-10-08] MEDS: PRILOSEC PO SCH (06:13)
[2016-10-08] MEDS: HUMULIN R SUBQ SCH ×4 (06:14→21:19)
[2016-10-08] MEDS: ADVAIR 250/50 DISKUS INH SCH (07:30)
--- NOTE | 2016-10-08 07:40 | Diag Imaging Result Doc PS360 ---
EXAM: ANGIOGRAM/PULMONARY ARTERIES INDICATION: dyspnea TECHNIQUE: Dose reduction protocol was used. In addition to the standard thin section CTA protocol slices, 3-D MIP reformations were performed. COMPARISON: None. FINDINGS: There is no evidence of pulmonary embolism. There is mild patchy aortic atherosclerotic calcification. There is no evidence of aortic aneurysm or dissection. There is cardiomegaly. 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 There is shotty nonspecific mild mediastinal and hilar lymphadenopathy, possibly reactive. For reference, there is a pretracheal lymph node measuring 1.6 x 1.9 cm axially. There is interstitial thickening and groundglass infiltrates mainly at the mid and lower lung zones suggesting pulmonary edema. There are very small bilateral pleural effusions with bibasilar atelectasis. IMPRESSION: 1.No evidence of pulmonary embolism. 2.Cardiomegaly. 3.Interstitial thickening and groundglass infiltrates at the mid and lower lung zones most compatible with pulmonary edema. Superimposed infectious infiltrate is less likely but possible. 4.Nonspecific mild mediastinal and hilar lymphadenopathy. Electronically signed by Yosef Lyons 10/08/2016 7:37 AM
[2016-10-08] MEDS: PRINIVIL PO SCH (08:28)
[2016-10-08] MEDS: ASPIRIN PO SCH (08:29)
[2016-10-08] MEDS: MAG-OX PO SCH (08:29)
[2016-10-08] MEDS: PRAVACHOL PO SCH (08:29)
[2016-10-08] MEDS: SINGULAIR PO SCH (08:29)
[2016-10-08] MEDS ORDERED: IMDUR PO SCH (09:00)
[2016-10-08] MEDS ORDERED: AMARYL PO SCH (09:00)
[2016-10-08] MEDS ORDERED: COREG PO SCH (09:00)
[2016-10-08] MEDS: LASIX IV SCH ×2 (11:25→22:39)
--- NOTE | 2016-10-08 15:16 | PROGRESS NOTE ---
DATE: 10/08/2016 SUBJECTIVE: Today, Ms. Marti referred to be doing a little better. Continued to have a residual shortness of breath and swelling of the lower extremity. OBJECTIVE: Vital signs: Blood pressure is 164/63, pulse of 88, respiration is 22, temperature 98.4. Patient is saturating 93% on 2 L of oxygen. General: Ms. Marti is a 61-year-old, female, obese, with a BMI of 35.8, who was in bed. She did not seem to be in any remarkable distress. However, she speaks slightly in incomplete sentences. ENT: Mucosa is pink and moist. Note, patient has very poor dentition. Neck: Supple. There is bilateral JVD. Chest: Air entry is bilaterally reduced. There are diffuse bilateral crepitations, white crepitations. Cardiovascular: Regular rate and rhythm. Did not appreciate any murmurs. Abdomen: Soft, distended. Questionable hepatosplenomegaly. Bowel sounds are hypoactive. Extremities: About 2-3+ pedal edema. LANGUAGE ASSISTANT: Patient is awake, alert, oriented. There is no focal neurological deficit. Skin: On both lower extremities, there are mild excoriations on both anterior aspects of the distal legs. LABORATORY DATA: WBC is 9.15, hemoglobin is 12.2, platelet count is 134. Chemistry is reviewed, unremarkable. Glucose is 173 with A1c of 8.1. ProB is 4955. Chest x-ray did show vessels distended, tiny pleural effusion. Increased density in the lower right lobe similar to prior exams. CT scan of the pelvis showed no evidence of PE, cardiomegaly. There is interstitial thickening and ground-glass infiltrate at the mid and lower zones, most compatible with pulmonary edema. An EKG did show sinus rhythm with T-wave changes in the inferior leads. Possible criteria for left ventricular hypertrophy. ASSESSMENT AND PLAN: 1. Acute respiratory distress secondary to pulmonary edema. 2. Acute on chronic congestive heart failure. Patient had an echocardiogram done in August this year, and ejection fraction was actually 60%. I think patient will probably need to be cardiac risk stratified. I will call Cardiology for them to re-evaluate her for possible stress and even further to an angiogram. 3. History of coronary artery disease, status post stents in the past. 4. Questionable hepatosplenomegaly. Not quite sure if it is due to the underlying fluid overload. However, do a CT scan of the abdomen to have a better anatomy of the spleen and the liver. 5. Diabetes mellitus with presenting A1c 8.1. For now will be using insulin to control the glucose. We will withhold the oral hypoglycemic agents for now. 6. We will also cut down the carvedilol to half since patient is in acute exacerbation. cc: Mo Basurto MD
--- NOTE | 2016-10-08 15:52 | Diag Imaging Result Doc PS360 ---
EXAM: CT ABD/PELVIS W/ IV CONT ONLY INDICATION: hepatosplenomegaly TECHNIQUE: Dose reduction protocol was used. COMPARISON: None. FINDINGS: Infiltrates at the lung bases are essentially stable as compared to a recent previous chest CT dated 10/07/2016. There are stable trace bilateral effusions and bibasilar atelectasis. Although the left hepatic lobe may be slightly prominent, technically the liver is not enlarged as it only measures about 12 cm in craniocaudal length at the midclavicular line. The contour of the liver is very subtly nodular. Early or mild cirrhosis is possible. No discrete hepatic mass is appreciated. The spleen is near the upper limit of normal measuring up to 13.3 cm axially. The gallbladder appears to be partially contracted. No pericholecystic inflammatory changes are appreciated. The pancreas appears normal. There is a prominent 2.4 cm left adrenal mass. There is a smaller 1.4 cm mass arising from the right adrenal gland. Statistically, these likely represent adrenal adenomas. Given the size of the left adrenal mass, consider follow-up adrenal adenoma protocol CT or MRI if not contraindicated. There are bilateral tiny cystic appearing renal foci bilaterally. There is no evidence of hydronephrosis. There is a tiny umbilical hernia containing only fat. There is a Berumen catheter in the urinary bladder and the bladder is largely nondistended. The reproductive tract is grossly unremarkable. The appendix is normal. The remainder of the GI tract is essentially unremarkable. IMPRESSION: 1.Questionable very subtle nodularity at the periphery of the liver. Early or very mild cirrhosis should be considered. 2.Spleen size is at near the upper limit of normal. 3.Bilateral adrenal masses, most prominent on the left. Please see above discussion. 4.Other incidental/nonacute findings detailed above. Electronically signed by Yosef Lyons 10/08/2016 3:49 PM
[2016-10-08] MEDS: TYLENOL PO PRN (17:43)
[2016-10-08] MEDS: NICODERM PATCH TD PRN (17:43)
[2016-10-08] MEDS: POLYSPORIN OINTMENT TOP SCH ×2 (17:44→20:37)
[2016-10-08] MEDS: COREG PO SCH (20:36)
[2016-10-08] MEDS: LOVENOX SUBQ SCH (22:39)
[2016-10-09] MEDS: ADVAIR 250/50 DISKUS INH SCH ×3 (03:27→19:38)
[2016-10-09] MEDS: TYLENOL PO PRN (06:14)
[2016-10-09] MEDS: PRILOSEC PO SCH (06:14)
[2016-10-09] MEDS: NITROGLYCERIN TOP SCH ×3 (06:15→16:51)
[2016-10-09] MEDS: HUMULIN R SUBQ SCH ×4 (06:16→20:48)
[2016-10-09 06:43] LABS: BASO% 0.5 % (0.0-0.8); EOS# 0.19 X1000 (0.0-0.7); EOS% 1.8 % (0.0-10.0); HEMATOCRIT 42.8 % (37.0-47.0); HEMOGLOBIN 13.1 g/dL (12.0-16.0); IMM GRAN# 0.03 X1000 (0.0-0.04); IMM GRAN% 0.3 % (0.0-0.5); LYMPH# 1.76 X1000 (1.2-3.4); LYMPH% 16.9 % (20.5-51.1); MANUAL DIFF NEEDED? NO; MCH 27.2 PG (27-31); MCHC 30.6 g/dL (33-37); MCV 88.8 FL (81-99); MONO# 0.67 X1000 (0.11-0.59); MONO% 6.4 % (1.7-9.3); MPV 11.6 FL (7.4-10.4); NEUT% 74.1 % (42.2-75.2); PLT 140 X1000 (130-400); RBC 4.82 XMIL (4.2-5.4)
[2016-10-09] MEDS: ZOFRAN IV PRN ×2 (06:43→20:21)
[2016-10-09 06:57] LABS: CALCIUM 8.8 mg/dL (8.8-10.2)
[2016-10-09] MEDS: PRINIVIL PO SCH (08:22)
[2016-10-09] MEDS: SINGULAIR PO SCH (08:22)
[2016-10-09] MEDS: MAG-OX PO SCH (08:22)
[2016-10-09] MEDS: PRAVACHOL PO SCH (08:22)
[2016-10-09] MEDS: COREG PO SCH ×2 (08:22→20:21)
[2016-10-09] MEDS: ASPIRIN PO SCH (08:22)
--- NOTE | 2016-10-09 08:39 | Diag Imaging Result Doc PS360 ---
EXAM: CHEST-PORTABLE INDICATION: dyspnea TECHNIQUE: One view COMPARISON: 10/07/2016 FINDINGS: Inspiration is suboptimal. There is suggestion of pulmonary edema and consolidations at both lung bases. At the left lung base, that appears to have worsened during the interval. No other new consolidations are appreciated. Cardiac silhouette is stable. IMPRESSION: Pulmonary edema and bilateral consolidations that may have worsened slightly at the left lung base. Electronically signed by Yosef Lyons 10/09/2016 8:37 AM
[2016-10-09] MEDS: POLYSPORIN OINTMENT TOP SCH ×2 (12:57→20:24)
[2016-10-09] MEDS: LASIX IV SCH (12:57)
--- NOTE | 2016-10-09 14:56 | PROGRESS NOTE ---
DATE: 10/09/2016 SUBJECTIVE: Today Ms. Marti referred to be doing a little better. She says she just a little tired. She was getting a bath when I went in to talk to her. OBJECTIVE: Vital signs: Blood pressure is 183/59, pulse of 65, respirations 20 , temperature 98.3 degrees. General: Ms. Marti is a 61-year-old, female. She was in bed. She did not seem to be in unremarkable distress. HEENT: Mucosa is pink. Anicteric. Acyanotic. Neck: Supple. There is a positive jugular venous distention. Patient has poor dentition. Chest: Air entry is bilaterally reduced. There is posterior bilateral crepitations. Cardiovascular: Regular rate and rhythm. No murmurs, no rubs, no gallops. Abdomen: Soft, nontender. Bowel sounds are present. SHIP YARD ELECTRICAL PERSON: Patient is awake, alert, and oriented. Extremities: About 2+ pedal edema. LABORATORY DATA: CBC is reviewed and is completely normal. Chemistries reviewed, completely normal, except for creatinine which is 1.0. Bicarb went up to 35. I Os; the patient has a urine output of 2750 for a negative balance of 3860. Weight: Patient's weight is 192. Came in with a weight of 295. I do not think that is real. A second weight of 197 is probably more realistic. So, the patient might have lost about 5 pounds since yesterday. ASSESSMENT: 1. Acute respiratory distress secondary to pulmonary edema. 2. Acute on chronic congestive heart failure. Ejection fraction of 60%. 3. History of coronary artery disease, status post stents in the past. 4. Diabetes mellitus with A1c of 8.1. Glucose levels have been controlled. 5. Uncontrolled hypertension. We will going to go ahead and start the patient on BiDil to help with both blood pressure control and also for the congestive heart failure. 6. Patient is pending evaluation by cardiology. cc: Mo Basurto MD MTDD
[2016-10-09] MEDS: BIDIL PO SCH (16:55)
[2016-10-10] MEDS: NITROGLYCERIN TOP SCH ×2 (00:35→06:13)
[2016-10-10] MEDS: LASIX IV SCH ×3 (00:36→20:51)
[2016-10-10] MEDS: LOVENOX SUBQ SCH ×2 (00:36→22:48)
[2016-10-10] MEDS: HUMULIN R SUBQ SCH ×4 (06:13→21:05)
[2016-10-10] MEDS: PRILOSEC PO SCH (06:13)
[2016-10-10 07:33] LABS: CALCIUM 8.7 mg/dL (8.8-10.2); MAGNESIUM 1.7 mg/dL (1.5-2.7); POTASSIUM 4.6 mmol/L (3.5-5.1)
[2016-10-10] MEDS: ADVAIR 250/50 DISKUS INH SCH ×2 (07:36→19:30)
[2016-10-10] MEDS: SINGULAIR PO SCH (08:52)
[2016-10-10] MEDS: ASPIRIN PO SCH (08:52)
[2016-10-10] MEDS: PRAVACHOL PO SCH (08:52)
[2016-10-10] MEDS: MAG-OX PO SCH (08:52)
[2016-10-10] MEDS: BIDIL PO SCH ×3 (08:52→17:42)
[2016-10-10] MEDS: COREG PO SCH ×2 (08:52→20:51)
[2016-10-10] MEDS: PRINIVIL PO SCH (08:52)
[2016-10-10] MEDS: POLYSPORIN OINTMENT TOP SCH ×2 (08:53→21:06)
[2016-10-10] MEDS: NICODERM PATCH TD PRN (08:56)
[2016-10-10] MEDS ORDERED: LASIX IV SCH ×2 (11:15→21:00)
[2016-10-10] MEDS ORDERED: LASIX IV ONE (11:31)
--- NOTE | 2016-10-10 11:54 | CONSULTATION ---
DATE OF CONSULTATION: 10/10/2016 REASON FOR CONSULT: Cardiology consulted for CAD, CHF. HISTORY OF PRESENT ILLNESS: Ms. Aleta Marti is a 61-year-old lady who was had a permanent pacemaker implantation in 2003, subsequent generator change in [address] [employer] permanent pacemaker for bradycardia, coronary artery disease, status post stent placement in the past, has relocated back from [place]. She was in [place] for a couple of years. She underwent a pacemaker implantation and stent placement at [facility] in the past. She has noticed increasing shortness of breath with increasing pedal edema. This gradually progressed and she became orthopneic, came to the emergency room, and was admitted. She denies chest pain per se; however, she also has had episodes of paroxysmal nocturnal dyspnea. There are no palpitations. There is no dizziness or syncope. She has been followed by [facility] in [place] for the last 2 years. Per patient, they did tests. However, she is not aware of the exact type of tests that were was done. However, no angiogram was performed. REVIEW OF SYSTEMS: A 14 point review of systems was done.GI: There is no history of nausea, vomiting, diarrhea. There is no history of hematemesis or melena. Central nervous system: No focal weakness to suggest a CVA or TIA. Genitourinary: There is no dysuria or hematuria. PAST MEDICAL HISTORY: 1. Permanent pacemaker implantation [employer] device 2003, battery change 2013. 2. Coronary artery disease, status post a intervention at [facility] in the past. 3. COPD. 4. Morbid obesity. 5. Hypertension. 6. Dyslipidemia. 7. History of TIA. 8. Diabetes. ALLERGIES: She is allergic to Plavix, Levaquin, and metformin. CURRENT MEDICATIONS: Include Lasix 40 mg IV b.i.d., pravastatin 40, omeprazole 20, nitroglycerin paste, BiDil, lisinopril 5 mg a day, Coreg 6.25 mg p.o. b.i.d., aspirin 325 mg a day, montelukast 10, nicotine patch, pravastatin 40, omeprazole 20. PHYSICAL EXAMINATION: Vital Signs: Blood pressure 154/64. Cardiovascular system: Normal jugular venous pressure. First and second heart sounds were heard. There is no S3 gallop. Respiratory System: Bibasilar inspiratory crepitations. Abdomen: Obese, soft, nontender. There is no guarding or rigidity. Bowel sounds were heard. Central nervous system: Alert. Was moving all 4 extremities. Extremities: Examination of extremities revealed pitting pedal edema. ELECTROCARDIOGRAM: Revealed normal sinus rhythm, nonspecific ST-T changes in the inferior leads. LABORATORY EXAMINATION: Revealed sodium 136, potassium 4.2, BUN 12, creatinine 0.7. She was ruled out for myocardial infarction by cardiac enzymes. ProBNP 4,372. Hematology: Hemoglobin 13, WBC 10, hematocrit 42, platelet count of 140,000. Urine examination negative. Chest x-ray: Heart failure. Echocardiogram 08/18/2016 revealed an ejection fraction of 60%, suboptimal study. ASSESSMENT AND PLAN: Ms. Aleta Marti is a 61-year-old lady with a history of obesity, diabetes, coronary artery disease, permanent pacemaker implantation, stent placement in the past, is admitted with increasing shortness of breath, pedal edema, orthopnea, paroxysmal nocturnal dyspnea. 1. She is in heart failure. Currently she has bibasilar inspiratory crepitations. She symptomatically improved. We will increase the Lasix to 80 mg twice daily. 2. She has been ruled out for myocardial infarction by cardiac enzymes. 3. She has diastolic heart failure. We will set her up to undergo a Lexiscan Cardiolite stress test when she is more euvolemic. 4. As far as medications are concerned, she is on BiDil. Will discontinue the nitroglycerin paste and increase the dosage of lisinopril to 10 mg a day. 5. Continue with beta blockers. Thank you for the consult. We will follow hospital course. cc: Cruz Lo MD
--- NOTE | 2016-10-10 14:34 | PROGRESS NOTE ---
DATE: 10/10/2016 SUBJECTIVE: Today Ms. Marti continues to refer that she feels a little low and weak and said her breathing has slightly improved and the swelling of her lower extremities have also slightly improved. OBJECTIVE: Vital signs: Blood pressure is 154/64, pulse is 80, respirations 20 , temperature 99.1 degrees, patient is saturating about 93% on 3 L of oxygen. General: Ms. Marti is a 61-year- old female. She is in bed, has very poor dentition. HEENT: Mucosa is pink and moist. Neck: Supple but there is positive JVD. Chest: Air entry is bilaterally reduced. There is diffuse crackles in the posterior lung velez. There is also end expiratory wheezing with slightly prolonged expiratory phase of respiration. Cardiovascular: Regular rate and rhythm. Did not appreciate any murmurs. Abdomen: Soft, is distended, is mildly tender around the periumbilical, there is a slight hernia defect over there. Extremities: About 2 to 3+ pedal edema. SECURITY INTERN: Patient is awake, alert and oriented x4. There is no focal neurological deficit. Skin: There is a mild telangiectasias on the upper chest. LABORATORY DATA: There is no CBC today. Chemistry. Sodium is 142, potassium is 4.6, chloride is 96, bicarb is 27, BUN went up slightly to 29, creatinine is 1.1. I's and O's urine output 1950 for accumulative negative balance of 5690. Patient weight is 193, presenting weight was 194, disease about 4 pounds lost during this hospital stay. Chest x-ray done yesterday continued to show pulmonary edema and bilateral consolidations that may have worsened slightly at the left lung base. ASSESSMENT: 1. Acute respiratory distress secondary to pulmonary edema with possible superimposed pneumonia. 2. Acute on chronic diastolic congestive heart failure, ejection fraction of 60% . 3. History of coronary artery disease in the past status post stents and pacemaker for abnormal heart rhythm. 4. Diabetes mellitus with presenting A1c of 8.1. 5. Hypertension controlled 6. Suspicion for early cirrhosis on imaging. A CT scan of the abdomen did refer for possibility of an early cirrhosis, not quite sure if this is a cardiac cirrhosis but we will do hepatitis panel. Denies strong alcohol history. So far patient does have adequate synthetic function and liver enzymes are unremarkable. I will also do an ultrasound of the abdomen to check on the cirrhosis. 7. Bilateral adrenal masses. Left is bigger than the right. Not quite sure if this is just an adenoma or something that needs to be looked very critically. On the CT scan report the left mass is 2.4 cm and the right is 1.4 cm. Both of them are less than 4 cm which will make surgery indicated. We however going to do the hormone determinations to make sure that they are not active hormone medical secretary teacher tumors. Will do metanephrines, cortisol , renin and aldosterone levels. 8. 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 9. Chronic obstructive pulmonary disease, possible mild exacerbation. We are going to continue with the nebulization, add incentive spirometer and I have added also antibiotics just in case patient has superimposed infection on the lung findings. So in general I think Ms. Marti is stable but continued to be symptomatic. Lasix has been increased however patient lab shows that she is probably getting slightly contracted, we are going to keep close eye on her electrolytes. This could potentially be just some cardiorenal syndrome. Will also be following very closely the results on the hormone determination for the adrenal mass. cc: Mo Basurto MD [facility]
--- NOTE | 2016-10-10 16:10 | Diag Imaging Result Doc PS360 ---
EXAM: US ABDOMEN-COMPLETE INDICATION: cirrhosis COMPARISON: 08/19/2016 FINDINGS: The gallbladder is contracted as the patient is not nothing by mouth. No shadowing stones are identified in the lumen of the gallbladder. There is no pericholecystic fluid. The common bile duct is grossly dilated measuring up to 1 cm in diameter. Sonographic [place]'s sign was reported to be negative. The liver measures up to 16.4 cm in length. There is no discrete hepatic mass. Portal venous flow is hepatopedal. The visualized pancreas is unremarkable. The distal aorta is obscured. The visualized portion of the aorta and IVC are unremarkable. The spleen is mildly prominent measuring up to 14.8 cm. The kidneys are grossly unremarkable. IMPRESSION: 1.Dilated common bile duct. 2.Contracted gallbladder with no discrete stones or surrounding fluid. 3.Mildly prominent spleen. 4.Grossly unremarkable liver. Electronically signed by Yosef Lyons 10/10/2016 4:07 PM
[2016-10-10] MEDS: MAXIPIME 1 GM/NS 1 GM/50 ML IVPB IV SCH (16:40)
[2016-10-10] MEDS: TYLENOL PO PRN (21:04)
[2016-10-11 05:20] LABS: ALLEN TEST YES; BE 15.9 mmoll (-3.0-3.0); BLOOD TYPE ARTERIAL; DRAW SITE R RADIAL; METHB 0.8 % (0.0-1.5); O2(CT) 19.7 mL/dL (15.0-23.0); PO2(98.6) 57 mmHg (60-100); SAMPLE BLOOD; SAO2 93.6 % (95.0-100.0); THB 15.5 g/dL (11.5-17.4)
[2016-10-11 05:22] LABS: MODALITY CANNULA; PCO2(98.6) 54 mmHg (35-45)
[2016-10-11] MEDS: MAXIPIME 1 GM/NS 1 GM/50 ML IVPB IV SCH ×2 (05:50→17:02)
[2016-10-11] MEDS: PRILOSEC PO SCH (06:00)
[2016-10-11] MEDS: HUMULIN R SUBQ SCH ×4 (06:52→21:12)
--- NOTE | 2016-10-11 07:32 | Diag Imaging Result Doc PS360 ---
EXAM: CHEST, TWO VIEWS HISTORY: Congestive heart failure TECHNIQUE: COMPARISON: 10/09/2016 FINDINGS: There is a left-sided pacemaker. The lungs are well expanded. The heart is mildly enlarged. Interval decrease in the pulmonary edema. Tiny pleural effusions. No consolidation. Mild scoliosis. IMPRESSION: Interval improvement with decreased pulmonary edema. Electronically signed by Chase Reed 10/11/2016 7:29 AM
[2016-10-11] MEDS: ADVAIR 250/50 DISKUS INH SCH ×2 (07:56→20:10)
[2016-10-11] MEDS: MAG-OX PO SCH (08:27)
[2016-10-11] MEDS: SINGULAIR PO SCH (08:27)
[2016-10-11] MEDS: BIDIL PO SCH ×3 (08:27→17:00)
[2016-10-11] MEDS: COREG PO SCH ×2 (08:27→20:52)
[2016-10-11] MEDS: PRINIVIL PO SCH (08:28)
[2016-10-11] MEDS: LASIX IV SCH ×2 (08:28→20:52)
[2016-10-11] MEDS: PRAVACHOL PO SCH (08:28)
[2016-10-11] MEDS: ASPIRIN PO SCH (08:28)
[2016-10-11] MEDS: POLYSPORIN OINTMENT TOP SCH ×2 (08:29→20:52)
[2016-10-11] MEDS: NICODERM PATCH TD PRN (08:35)
--- NOTE | 2016-10-11 08:39 | Extremity Venous Study ---
PROCEDURE NAME: Venous U/S Bilateral Legs - 10/07/2016 REFERRING PHYSICIAN: Dr. Smith READING PHYSICIAN: Dr. Fernandez. HOSPITALIST: [place]. INDICATION: Leg swelling and shortness of breath. FINDINGS: The deep and superficial veins of both lower extremities were imaged throughout their course. They are compressible, patent and without thrombus. INTERPRETATION: No evidence of deep or superficial venous thrombosis in either lower extremity. cc: MD Claudio Castillo MD
[2016-10-11 09:34] LABS: POTASSIUM 4.3 mmol/L (3.5-5.1)
[2016-10-11 10:23] LABS: FREE T4 1.8 ng/dL (0.93-1.70)
--- NOTE | 2016-10-11 16:43 | PROGRESS NOTE ---
DATE: 10/11/2016 SUBJECTIVE: Today Ms. Marti refers to be doing a lot better. She said her breathing has significantly improved. OBJECTIVE: Vital signs: Blood pressure is 183/69, pulse of 73, respirations 20 , temperature 97.9 degrees. General: Ms. Marti is a 61-year-old female. She is in bed. She did not seems to be in any remarkable distress. HEENT: Mucosa is pink and moist. Anicteric. Acyanotic. Neck: Supple. Chest: Air entry is bilaterally reduced, but there are a few bilateral crepitations. There was not any wheezing today. There is a slight prolongation of the expiratory phase of respiration. Cardiovascular: Regular rate and rhythm. Abdomen: Soft , distended. Mildly tender around the periumbilical area. There is a slight hernia defect. Extremities: Just a trace of pedal edema. DECK MATE: Patient is awake and alert and oriented. There is no focal neurological deficit. Input and output: Patient had 1375 urine output for an accumulative negative balance of 6775. Patient weight is 93, admission weight was 174. IMAGING: A chest x-ray this morning shows interval improvement with decreased pulmonary edema. ASSESSMENT: 1. Acute respiratory distress secondary to pulmonary edema with possible superimposed pneumonia. 2. Acute on chronic diastolic heart failure. Ejection fraction of 60%. 3. History of coronary artery disease status post stents and pacemaker for abnormal heart rate and rhythm. 4. Diabetes mellitus with presenting A1c of 8.1. We will continue treating this with insulin. 5. Hypertension. Controlled. 6. Suspicion for early cirrhosis on CT imaging. We have sent a hepatitis panel. We are still waiting for the report. I presume this is probably cardiac cirrhosis. 7. Bilateral adrenal masses. We are still waiting for the hormone determination to make sure these are not hormone-secreting tumors. So far cortisol is normal, so it is not [place]. 8. 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 9. Chronic obstructive pulmonary disease, in mild exacerbation. PLAN: So in general, I think Ms. Marti is a little better today. She got admitted because of shortness of breath, fluid overload which we think it was Diastolic Heart failure. However, CT scan did show that she probably has also underlying pneumonia. She seems to have improved with diuretic and antibiotics and breathing therapy. There is a plan from Cardiology standpoint to do a stress test tomorrow and we are also waiting on the adrenal secreting hormones to make sure she does not have an adrenal-secreting tumor. In terms of disposition, I think in about a day or 2 if her breathing is a lot better we can discharge her home. cc: Mo Basurto MD [facility]
[2016-10-11] MEDS: LANTUS SUBQ SCH (21:10)
[2016-10-11] MEDS: LOVENOX SUBQ SCH (23:14)
[2016-10-12] MEDS: MAXIPIME 1 GM/NS 1 GM/50 ML IVPB IV SCH ×2 (06:45→18:13)
[2016-10-12] MEDS: PRILOSEC PO SCH (06:46)
[2016-10-12] MEDS: HUMULIN R SUBQ SCH ×4 (06:46→22:42)
[2016-10-12] MEDS ORDERED: LEXISCAN ONE (08:34)
[2016-10-12 09:31] LABS: CALCIUM 8.9 mg/dL (8.8-10.2); POTASSIUM 3.9 mmol/L (3.5-5.1)
[2016-10-12] MEDS: ADVAIR 250/50 DISKUS INH SCH ×2 (09:58→19:36)
[2016-10-12 10:50] LABS: HEPATITIS PROFILE ACUTE SEE COMMENTS
--- NOTE | 2016-10-12 11:35 | Diag Imaging Result Document ---
PROCEDURE NAME: MYOCARDIAL PERF SCAN, STR/REST - 10/12/2016 PROCEDURE PERFORMED: Lexiscan Cardiolite stress test. DESCRIPTION OF PROCEDURE: Patient had chest discomfort during Lexiscan infusion. Stress electrocardiogram was negative for ischemia. Following Lexiscan infusion, Cardiolite was injected. There were 14.5 mCi of Cardiolite injected for the rest phase and 40.3 mCi of Cardiolite were injected for the stress phase. Gated SPECT images were obtained in standard views. Images revealed severe grade, large size fixed defect in the left ventricular apex, diagnostic of infarct or scar. There was also a fixed defect in the distal anterior wall. There was a reversible defect in the left ventricular inferior wall, diagnostic of ischemia. In addition, there was a reversible defect in the inferolateral wall, diagnostic of ischemia. There is low-grade karmen-infarct ischemia noted in the left ventricular apex as well. Left ventricular ejection fraction was 49%. There was apical hypokinesis. CONCLUSIONS: 1. Chest pain during Lexiscan infusion. 2. Negative Lexiscan stress electrocardiogram. 3. Myocardial perfusion images revealed a moderate size, reversible perfusion defect in the inferior wall and in the inferolateral wall, diagnostic of ischemia. There is severe grade, large-sized, fixed defect in the distal anteroapical wall, diagnostic of infarct or scar associated with small apical karmen-infarct ischemia. Left ventricular ejection fraction of 49%. There is apical hypokinesis. cc: Cruz Lo MD
[2016-10-12] MEDS: PRAVACHOL PO SCH (11:46)
[2016-10-12] MEDS: ASPIRIN PO SCH (11:46)
[2016-10-12] MEDS: POLYSPORIN OINTMENT TOP SCH (11:46)
[2016-10-12] MEDS: BIDIL PO SCH ×3 (11:46→22:42)
[2016-10-12] MEDS: LASIX IV SCH ×2 (11:46→22:41)
[2016-10-12] MEDS: SINGULAIR PO SCH (11:46)
[2016-10-12] MEDS: COREG PO SCH ×2 (11:46→22:42)
[2016-10-12] MEDS: PRINIVIL PO SCH (11:46)
[2016-10-12] MEDS: MAG-OX PO SCH (11:46)
--- NOTE | 2016-10-12 13:13 | PROGRESS NOTE ---
DATE: 10/12/2016 Today Ms. Marti referred to be doing much better. She just finished doing the stress test. OBJECTIVE: Vital signs: Blood pressure is 126/50, pulse of 72, respirations 15, temperature 97.7 degrees. General: Ms. Marti is a 61-year-old, female. She was sitting up in the chair. Not in any remarkable distress. HEENT: Mucosa is pink and moist. Anicteric. Acyanotic. Neck: Supple. There is still JVD. Chest: Air entry is bilaterally reduced. There are bilateral posterior crepitations more so on the right posterior lung field. Cardiovascular: Regular rate and rhythm. There are no murmurs, no rubs, no gallops. Abdomen: Distended but nontender. There is a mild hernia defect around the periumbilical area. Extremities: Trace of pedal edema. MARKER ASSEMBLER: Patient is awake and alert. There is no focal neurological deficit. LABORATORY DATA: There is no CBC. Chemistries reviewed, unremarkable. A stress test which was done this morning shows moderate size reversible perfusion defect in the inferior wall and in the inferior lateral wall diagnostic of ischemia. There is also a severe grade large size fixed defect in the distal anterior old apical wall diagnostic of infarct or scar associated with small apical karmen-infarct ischemia. Ejection fraction is 49. ASSESSMENT: 1. Acute respiratory distress secondary to pulmonary edema with possible superimposed pneumonia. 2. Congestive heart failure both systolic and diastolic. Echo did show ejection fraction of 60%. However nuclear test shows ejection fraction of about 49%. 3. Coronary artery disease. Patient has evidence on stress test of reversible injury suggestive of ischemia and also evidence of infarcts and scars. Will be waiting on Cardiology's further recommendations if they will plan to do a left heart catheterization. For now, we are going to continue with the patient on beta oliver, statin, aspirin and WON inhibitors. 4. Diabetes mellitus. Presenting A1c is 8.1. 5. Hypertension. 6. Early cirrhosis on CT scan. I think this is probably secondary to cardiac cirrhosis. 7. Bilateral adrenal mass. We are still pending the adrenal gland hormone determination to make sure those masses are not active hormones secreting tumors. 8. Concentric hypertrophic cardiomyopathy secondary to hypertensive heart disease. 9. COPD in mild exacerbation. So in general, I think Ms. Marti is relatively stable. She has a positive stress test. Will be pending on Cardiology for further management plan. We are going to continue with her current medications including antibiotics, nebulizations, diuretics and heart medications. We will also get PT to start working with the patient. cc: Mo Basurto MD
[2016-10-12] MEDS ORDERED: MISC. PHARMACY COMMUNICATION SCH (16:45)
[2016-10-12] MEDS: NICODERM PATCH TD PRN (18:28)
[2016-10-12] MEDS: LANTUS SUBQ SCH (22:41)
[2016-10-12] MEDS: LOVENOX SUBQ SCH (22:42)
[2016-10-13] MEDS: MAXIPIME 1 GM/NS 1 GM/50 ML IVPB IV SCH (06:27)
[2016-10-13 06:34] LABS: MANUAL DIFF NEEDED? NO
[2016-10-13] MEDS: PRILOSEC PO SCH (06:45)
[2016-10-13] MEDS: HUMULIN R SUBQ SCH ×2 (06:45→12:26)
[2016-10-13 06:48] LABS: INR 1.02; PROTIME 10.7 Seconds (9.2-11.7); PTT 31.5 Seconds (22.0-36.0)
[2016-10-13 06:49] LABS: BASO% 0.5 % (0.0-0.8); EOS# 0.24 X1000 (0.0-0.7); EOS% 2.4 % (0.0-10.0); HEMATOCRIT 39.4 % (37.0-47.0); HEMOGLOBIN 12.4 g/dL (12.0-16.0); IMM GRAN# 0.04 X1000 (0.0-0.04); IMM GRAN% 0.4 % (0.0-0.5); LYMPH# 1.71 X1000 (1.2-3.4); LYMPH% 16.9 % (20.5-51.1); MCH 27.4 PG (27-31); MCHC 31.5 g/dL (33-37); MONO# 0.74 X1000 (0.11-0.59); MONO% 7.3 % (1.7-9.3); MPV 12.4 FL (7.4-10.4); NEUT% 72.5 % (42.2-75.2); PLT 147 X1000 (130-400); RBC 4.53 XMIL (4.2-5.4)
[2016-10-13 06:57] LABS: ALBUMIN 3.2 g/dL (3.5-5.0); MAGNESIUM 1.9 mg/dL (1.5-2.7); POTASSIUM 3.5 mmol/L (3.5-5.1); TOTAL BILIRUBIN 0.5 mg/dL (0.20-1.00); TOTAL PROTEIN 6.9 g/dL (6.3-8.3)
--- NOTE | 2016-10-13 07:29 | Diag Imaging Result Doc PS360 ---
EXAM: CHEST-PORTABLE HISTORY: dyspnea TECHNIQUE: Portable COMPARISON: 10/11/2016 FINDINGS: The lungs are well expanded. There is a left-sided pacemaker. Cardiomegaly remains. Pulmonary edema is more pronounced. I believe there is a small left pleural effusion. IMPRESSION: Interval worsening in pulmonary edema. Electronically signed by Chase Reed 10/13/2016 7:27 AM
[2016-10-13] MEDS: ADVAIR 250/50 DISKUS INH SCH (07:48)
--- NOTE | 2016-10-13 07:51 | EKG Report ---
Test Performed on : 10/13/2016 06:53:16 AM Test Reason : heart cath standing order Blood Pressure : / mmHG Vent. Rate : 063 BPM Atrial Rate : 063 BPM P-R Int : 170 ms QRS Dur : 084 ms QT Int : 438 ms P-R-T Axes : 039 005 107 degrees QTc Int : 448 ms Suspect unspecified pacemaker failure Normal sinus rhythm. Left ventricular hypertrophy with repolarization abnormality Possible Inferior infarct , age undetermined Cannot rule out Anterior infarct (cited on or before 17-AUG-2016) Abnormal ECG When compared with ECG of 07-OCT-2016 19:08, Borderline criteria for Inferior infarct are now present Nonspecific ST depression in high-lateral leads I and AVL T wave inversion no longer evident in Inferior leads T wave inversion now evident in Lateral leads Clinical Correlation advised Confirmed by Hair Bush DO ([id number]) on 10/15/2016 1:06:19 PM
[2016-10-13] MEDS ORDERED: NS 1,000 ML IV SCH ×2 (08:00→12:00)
[2016-10-13] MEDS ORDERED: HEPARIN 1000 UNITS/NS 2,000 UNIT/1,000 ML IV.SOLN ONE (08:22)
[2016-10-13] MEDS ORDERED: VERSED ONE (09:05)
[2016-10-13] MEDS ORDERED: MORPHINE ONE ×2 (09:05→09:31)
[2016-10-13] MEDS ORDERED: CLAVE TWINSITE 32 IN 11959 ONE (09:05)
[2016-10-13] MEDS ORDERED: CLAVE PUMP SET NO FILTER 12260 ONE (09:05)
[2016-10-13] MEDS ORDERED: NS 1,000 ML ONE (09:05)
[2016-10-13] MEDS ORDERED: LASIX ONE (10:09)
[2016-10-13] MEDS ORDERED: MAALOX PLUS LIQUID PO PRN (11:24)
[2016-10-13] MEDS: SINGULAIR PO SCH (12:24)
[2016-10-13] MEDS: MAG-OX PO SCH (12:24)
[2016-10-13] MEDS: PRINIVIL PO SCH (12:24)
[2016-10-13] MEDS: LASIX IV SCH (12:24)
[2016-10-13] MEDS: ASPIRIN PO SCH (12:24)
[2016-10-13] MEDS: PRAVACHOL PO SCH (12:24)
[2016-10-13] MEDS: COREG PO SCH (12:25)
[2016-10-13] MEDS: BIDIL PO SCH ×2 (12:25→13:51)
[2016-10-13] MEDS: POLYSPORIN OINTMENT TOP SCH (12:25)
[2016-10-13 14:08] VITALS: BP 163/74
--- NOTE | 2016-10-13 15:24 | EKG Report ---
Test Performed on : 10/13/2016 11:44:34 AM Test Reason : post cath Blood Pressure : / mmHG Vent. Rate : 068 BPM Atrial Rate : 068 BPM P-R Int : 162 ms QRS Dur : 086 ms QT Int : 426 ms P-R-T Axes : 040 007 103 degrees QTc Int : 452 ms Normal sinus rhythm. Left ventricular hypertrophy with repolarization abnormality Possible Inferior infarct (cited on or before 15-JAN-2014) Cannot rule out Anterior infarct (cited on or before 17-AUG-2016) Abnormal ECG When compared with ECG of 13-OCT-2016 06:53, (Unconfirmed) Previous pacer spike in II, III and AVF no longer present - etiology? Persistant T wave inversion I and AVL RSR' in V2 noted Confirmed by Hair Bush DO ([id number]) on 10/15/2016 1:23:58 PM
--- NOTE | 2016-10-14 06:54 | DISCHARGE SUMMARY ---
ADMISSION DATE: 10/07/2016 DISCHARGE DATE: 10/13/2016 Transferred 10/13/2016 to [facility]. CONSULTATIONS: Dr. Lo with Cardiology. PERTINENT PROCEDURES: 1. Pulmonary arteriogram showed no evidence of PE, cardiomegaly, interstitial thickening, and ground-glass infiltrates at the mid and lower lungs zones most compatible with pulmonary edema. Superimposed infectious infiltrate less likely but possible nonspecific mild mediastinal and hilar lymphadenopathy. 2. Bilateral lower extremity Doppler showed no evidence of deep or superficial venous thrombosis. 3. Abdomen and pelvis CT showed questionable, very subtle nodularity at the periphery of the liver. Early or very mild cirrhosis should be considered. Spleen is at the near upper limit of normal. Bilateral adrenal masses most prominent on the left. 4. Abdominal ultrasound showed dilated common bile duct. Contracted gallbladder with no discrete stones or surrounding fluid. Mildly prominent spleen, grossly unremarkable liver. 5. Myocardial perfusion scan. This revealed a moderate-size reversible perfusion defect in the inferior wall in the inferior lateral wall diagnostic of ischemia. Severe grade large-sized fixed defect in the distal anterior apical wall diagnostic of infarct or scar associated with small apical karmen-infarct ischemia. Left ventricular EF 49%. There is apical hypokinesis. 6. Left heart catheterization performed on 10/13/2016 showed 3 vessel disease. Patient being transferred to [facility] for possible CABG. Still awaiting final dictation report. DISCHARGE DIAGNOSES: 1. Coronary artery disease with three-vessel disease. Patient is status post left heart catheterization on 10/13/2016 where patient was noted to have 3 vessel disease. She is being transferred to [facility] for possible CABG. 2. Acute respiratory distress secondary to pulmonary edema. Possible superimposed pneumonia. 3. Congestive heart failure both systolic and diastolic. 4. Diabetes mellitus. Presenting A1c was 8.1. 5. Hypertension. 6. 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 7. Bilateral adrenal mass. Still pending adrenal gland hormone determination to make sure the masses are not actively secreting hormone tumors. 8. Concentric hypertrophic cardiomyopathy secondary to hypertensive heart disease. 9. Chronic obstructive pulmonary disease with mild exacerbation. HOSPITAL COURSE: Ms. Marti is a 61-year-old female known to our service with a history of systolic and diastolic heart failure. Presented to the ED with chest pain and dyspnea and bilateral lower extremity swelling for 1 week, worsening shortness of breath with exertion, cough. No fevers, some nausea, chest pressure across her precordium; pressure-like, not sharp, nonradiating, not severe. She did report orthopnea. Initial chest x-ray showed distended vessels, tiny pleural effusions. The pulmonary arteriogram showed no evidence of PE, cardiomegaly and interstitial thickening and ground-glass infiltrate. Pulmonary edema and superimposed infectious infiltrate. Possibility nonspecific, mild mediastinal and hilar lymphadenopathy. She also had bilateral lower extremity venous Dopplers. They did not show any evidence of deep or superficial venous thrombosis. The initial BNP was 4372. All cardiac enzyme were negative. She was admitted for heart failure exacerbation. She was started on IV diuresis; she had strict I Os and daily weights, as well as an echocardiogram. The patient also had some questionable hepatosplenomegaly. CT of the abdomen and pelvis was obtained that did show an early versus very mild cirrhosis. The spleen size was noted to be near upper limit of normal with bilateral adrenal masses most prominent on the left. She was set up for perfusion scanning by Cardiology which was positive. She was sent for left heart catheterization that did show three- vessel disease. The patient is being transferred to [facility] for possible CABG. In the interim for her possible superimposed pneumonia she was given IV antibiotics. In reference to her bilateral adrenal masses, we are still pending results of those masses to make sure that they are not actively secreting tumors. VITAL SIGNS: At the time of her transfer, temperature 97.5 degrees, heart rate 66, respirations 20, blood pressure 163/74, O2 was 96% on 2 L nasal cannula. Dictated by INDY Rae for Mo Basurto MD cc: Mo Basurto MD [facility]
--- NOTE | 2016-10-25 21:22 | CARDIAC CATH REPORT ---
PROCEDURE NAME: - PROCEDURE PERFORMED: Left heart catheterization with selective coronary angiography and left ventriculography. Abdominal aortogram was also performed. Entry site right femoral artery. CATHETERS USED: 5-Moldovan 3DRC, JL4, and angled pigtail. TECHNIQUE: After intravenous sedation with Versed and morphine, local anesthesia with lidocaine was applied over right femoral artery. Arterial access was established with placement of a 5- Moldovan sheath in the right femoral artery using modified Seldinger technique. In traversing the right iliac artery, an iliac artery obstructive lesion was evident and this was achieved using a Wholey wire and 3DRC catheter. Coronary angiography was subsequently performed followed by left heart catheterization and left ventriculography. Following the left ventriculography, pigtail catheters were retrieved into the distal aorta and distal abdominal aortogram was performed. Upon completion of procedure, arterial sheath was removed from right femoral artery and hemostasis facilitated with manual pressure. The patient tolerated the procedure without apparent complications. FINDINGS: Hemodynamics: Aortic pressure 160/60 with a mean of 96, left ventricular pressure 152 over EDP of 16. COMMENTS ON HEMODYNAMICS: There is no significant gradient across the aortic valve demonstrated on pullback from left ventricle. ANGIOGRAPHY: 1. Left ventriculogram: The left ventricle is of normal size with mid anterior wall hypokinesis and akinesis of the apical inferior wall. Estimated left ejection fraction of 60%. There is no significant mitral regurgitation. 2. Left main coronary: The left main coronary demonstrates mild (30%-40%) distal stenosis. 3. Left anterior descending coronary. Left anterior descending coronary demonstrates a severe (80%) very proximal stenosis. There is a stent at midvessel in left anterior descending coronary which is widely patent. The distal left anterior descending coronary artery demonstrates a moderate (60%) focal stenosis. 4. Ramus intermedius branch: A small to medium size ramus intermedius branch is demonstrated and demonstrates a moderate to severe (70%-80%) stenosis proximally. 5. Left circumflex coronary: The left circumflex coronary demonstrates a moderate to severe (70%- 80%) focal stenosis proximally. 6. Right coronary. The dominant right coronary demonstrates severe atherosclerotic narrowing from proximal to mid vessel reaching 90% severity of stenosis. 7. Abdominal aortogram. This demonstrates a severe stenosis in the right iliac artery. CONCLUSIONS: 1. Normal left ventricular ejection fraction with mid anterior hypokinesis and apical inferior akinesis. 2. Right dominant coronary anatomy with severe multivessel coronary atherosclerosis as described. 3. Severe right iliac artery stenosis. cc: Kristian Wan MD
== END 2016-10-13 17:10 | disposition short-term general hospital (02) ==
LOC: ED 18:53 → SUATTDRO 21:19 → 3N 21:19 → 3S 10-13 10:18
PROVIDERS: ATTEND Internal Medicine

== ENCOUNTER 2018-09-13 14:24 | Inpatient (IN) ==
[2018-09-13] MEDS ORDERED: ASPIRIN PO ONE (14:28)
[2018-09-13] MEDS ORDERED: NITROGLYCERIN TOP ONE (14:42)
[2018-09-13 14:51] LABS: BASO# 0.03 X1000 (0.0-0.2); BASO% 0.3 % (0.0-0.8); EOS# 0.06 X1000 (0.0-0.7); EOS% 0.6 % (0.0-10.0); HEMATOCRIT 37.7 % (37.0-47.0); HEMOGLOBIN 12.3 g/dL (12.0-16.0); IMM GRAN# 0.05 X1000 (0.0-0.04); IMM GRAN% 0.5 % (0.0-0.5); LYMPH# 1.29 X1000 (1.2-3.4); LYMPH% 13.8 % (20.5-51.1); MCH 27.8 PG (27-31); MCHC 32.6 g/dL (33-37); MCV 85.1 FL (81-99); MONO# 0.46 X1000 (0.11-0.59); MONO% 4.9 % (1.7-9.3); MPV 12.3 FL (7.4-10.4); NEUT# 7.45 X1000 (1.4-6.5); NEUT% 79.9 % (42.2-75.2); PLT 128 X1000 (130-400); RBC 4.43 XMIL (4.2-5.4); RDW 14.1 % (11.5-14.5); WBC 9.34 X1000 (4.8-10.8)
[2018-09-13 15:07] LABS: INR 0.91
[2018-09-13 15:08] LABS: PTT 29.8 Seconds (22.3-41.8)
[2018-09-13 15:15] LABS: ALB/GLOB RATIO 1.2; ALBUMIN 3.4 g/dL (3.5-5.0); CALCIUM 8.8 mg/dL (8.8-10.2); CREATININE 1.4 mg/dL (0.5-0.9); TOTAL BILIRUBIN 0.25 mg/dL (0.20-1.00); TOTAL PROTEIN 6.3 g/dL (6.3-8.3)
--- NOTE | 2018-09-13 15:24 | Diag Imaging Result Doc PS360 ---
CHEST-2 VIEWS - 09/13/2018 INDICATION: chest pain COMPARISON: 03/09/2017 FINDINGS: Stable pacemaker. Heart size is top normal. There are some increased markings in the lung bases bilaterally that are identical to prior exams. Probably this is mild fibrosis. No dense infiltrates. No pneumothorax or pleural effusion. IMPRESSION: No change from prior. Electronically signed by Misbah Crain 09/13/2018 3:21 PM
--- NOTE | 2018-09-13 17:53 | PROVIDER DOCUMENTATION ---
This chart was entered by Sherin Herrera Scribe, acting as scribe for Noble Linares MD. HPI-Chest Pain - General Chief Complaint: Chest Pain Stated Complaint: STEMI Time Seen by Provider: 09/13/18 14:41 Source: patient, EMS (first response) Allergies/Adverse Reactions: Patient Allergies Allergy/AdvReac Type Severity Reaction Status Date / Time metformin Allergy Intermediate HEADACHE, Verified 01/15/17 00:29 facial numbness trazodone Allergy Intermediate Hallucinati Verified 01/15/17 00:29 ons promethazine HCl * AdvReac Severe NAUSEA Verified 01/11/17 22:10 [From Phenergan] ranolazine [From Ranexa] AdvReac Mild VOMITING Verified 01/15/17 00:29 clopidogrel bisulfate * AdvReac NAUSEA Verified 01/15/17 00:29 [From Plavix] honey AdvReac NAUSEA/VOMI Verified 01/15/17 00:29 TING levofloxacin AdvReac Severe NV Verified 01/15/17 00:29 saccharin AdvReac NAUSEA/VOMI Verified 01/15/17 00:29 TING Home Medications: Home Medication List Medication Instructions Recorded Confirmed Last Taken Type Albuterol Sulfate Inhaler 2 puff INH PRN PRN 10/07/16 01/12/17 Unknown History [Ventolin Hfa] Aspirin 325 mg PO DAILY 10/07/16 01/12/17 10/07/16 09:00 History Esomeprazole [Nexium] 40 mg PO DAILY 10/07/16 01/12/17 10/06/16 21:00 History Fluticasone/Salmeterol [Advair 1 puff INH BID 10/07/16 01/12/17 10/07/16 09:00 History 250-50 Diskus] Glimepiride 2 mg PO DAILY 10/07/16 01/12/17 10/07/16 09:00 History Montelukast Sodium [Singulair] 10 mg PO DAILY 10/07/16 01/12/17 10/07/16 09:00 History Nitroglycerin [Nitrostat] 0.4 mg SL DIRECTED 10/07/16 01/12/17 Unknown History Potassium Chloride [Klor-Con M20] 20 meq PO DAILY 10/07/16 01/12/17 10/06/16 09:00 History Pravastatin Sodium 40 mg PO DAILY 10/07/16 01/12/17 10/07/16 09:00 History Aspirin 81 mg PO DAILY chewtab 01/18/17 Unknown Rx Furosemide [Lasix] 80 mg PO BID #0 01/18/17 01/12/17 10/07/16 09:00 Rx Isosorbide Mononitrate E.r. [Imdur] 30 mg PO BID #120 tab 01/18/17 Unknown Rx LISINOpril [Prinivil] 10 mg PO DAILY #90 tab 01/18/17 Unknown Rx Metoprolol Succinate E.r. [Toprol 50 mg PO BID #120 tab 01/18/17 Unknown Rx Xl] Ticagrelor [Brilinta] 90 mg PO BID #180 tab 01/18/17 Unknown Rx Doxycycline 100 mg PO BID #14 tablet 03/09/17 Unknown Rx Prednisone 10 mg PO DIRECTED #1 tab.ds.pk 03/09/17 Unknown Rx - History of Present Illness-CP Nature of Presenting Problem: 63 yowf presents to the ed via ems (first response) from pcp dr villela office with possible STEMI. pt opnce in er had no ST elevation on EKG. pt sts was given x1 nitro and resolved pain. pt has 2/10 heaviness in chest but sts not painful. pt sts pain has been present 3 days and intermittent. pt sts was recently removed from Hospice care and was sent to pain clinic for chronic back and BLE pain. pton exam is in no distress and is laughing with staff. Location: reports: substernal Chest Pain Radiation: reports: no radiation Quality of Pain: reports: pressure, other (heavy) Severity in ED: mild Onset/Duration: 3 days ago Timing: resolved prior to arrival (with ems after Nitro SL) Context/Activities at Onset: reports: light activity Modifying Factors: improves with: nothing Associated Symptoms: reports: diaphoresis. denies: abdominal pain, back pain, nausea, shortness of breath, vomiting Nitro Today/Relief: 0.4 mg x 1, provided by EMS, complete relief Aspirin Treatment Today: 325 mg x 1, provided by EMS Prior Chest Pain/Cardiac Workup: reports: other (has extensive workup in past) Similar Symptoms Previously?: Yes Recently Seen Here or By Another Healthcare Provider: Yes (dr villela pcp) Review of Systems - Adult - REVIEW OF SYSTEMS - ADULT Constitutional: denies: chills, fever Eyes: reports: no symptoms reported Ears, Nose, Mouth & Throat: reports: no symptoms reported Cardiovascular: reports: see HPI, chest pain, edema (BLE 3+). denies: palpitations, syncope Respiratory: denies: cough, shortness of breath, wheezing Gastrointestinal: denies: abdominal pain, diarrhea, nausea, vomiting Genitourinary: reports: no symptoms reported Musculoskeletal: reports: see HPI, back pain (chronic). denies: neck pain Integumentary: reports: no symptoms reported Neurological: denies: dizziness/vertigo, headache/migraines, seizure, slurred speech Psychiatric: reports: no symptoms reported Endocrine: reports: see HPI, excessive sweating Hematologic/Lymphatic: reports: no symptoms reported Allergic/Immunologic: reports: no symptoms reported All Other Systems: Reviewed and Negative Past History - Adult - PAST MEDICAL HISTORY-ADULT Review of Records: reports: Old Records Reviewed, Nursing Assessment Review, Medications Reviewed, Social history reviewed & non-contributory. Major Childhood Illnesses: reports: denies history Cardiovascular: reports: CAD, CHF, HTN, hyperlipidemia, pacemaker Respiratory: reports: COPD Gastrointestinal: reports: GERD Obstetrical/Gynecological: reports: denies history Genitourinary: reports: denies history Musculoskeletal: reports: denies history Hand Dominance: Right Handed Neurological: reports: denies history, TIA Psychiatric: reports: denies history Endocrine/Immune: reports: Diabetes, thyroid disorder Diabetes Type: Type 2 Other Conditions: reports: denies history - PRIOR SURGERIES/PROCEDURES Surgical/Procedure History: reports: cardiac stent, pacemaker - IMMUNIZATION STATUS Childhood Immunizations: UTD, See Nurse Assessment Flu Vaccine: See Nurse Assessment - FAMILY HISTORY Family History: reviewed, not pertinent - SOCIAL HISTORY Smoking: cigarettes, less than 1 pack/day Provider spent 3-5 mins advising pt. on dangers of tobacco.: Discussed manners to quit use, and f/u contacts for add'l counseling. Substance Use: denies Living Situation: family Physical Exam-General - PHYSICAL EXAM-ADULT Initial Vital Signs Reviewed: Yes - CONSTITUTIONAL General Appearance: appears well, alert, no apparent distress (pt denies pain on exam. sts has mild heavy 2/10), obese - EYES Eyes: PERRL/EOMI, pink conjunctivae - HEAD, EARS, NOSE, MOUTH & THROAT HENMT: moist mucous membranes, dental decay - NECK Neck: non-tender, full range of motion, supple, normal inspection - RESPIRATORY Respiratory: chest non-tender, lungs clear, normal breath sounds - CARDIOVASCULAR Cardiovascular: normal peripheral pulses, regular rate, rhythm - CHEST (BREASTS) Chest/Breast: deferred - GASTROINTESTINAL (ABDOMEN) Abdominal Exam: normal bowel sounds, non tender, soft - LYMPHATIC Lymphatic: no adenopathy - MUSCULOSKELETAL Back Exam: normal inspection, no CVA tenderness, no vertebral tenderness Extremity: normal range of motion, normal capillary refill, pelvis stable, swelling (BLE edema 3+) - SKIN Integumentary: normal color, normal turgor, warm/dry - NEUROLOGIC Neurologic: grossly normal, no motor/sensory deficits - PSYCHIATRIC Psych/Mental Status: normal mood/affect, normal thought content, normal thought process, oriented x 3 - HEART Score HEART Score: History: Moderately Suspicious HEART Score: ECG: Non-Specific Repolarization Disturbance/LBBB/PM HEART Score: Age: 45-65 Years HEART Score: Risk Factors for Atherosclerotic Disease: > or = 3 Risk Factors or History of Atherosclerotic Disease HEART Score: Troponin: < or = Normal Limit Total HEART Score:: 5 Progress - PLAN OF CARE/RESULTS Progress/Plan/Lab Results: Vital Signs - 8 hr 09/13/18 14:34 Temperature 97.5 F L Pulse Rate 80 Respiratory Rate 18 Blood Pressure 162/91 O2 Sat by Pulse Oximetry 96 Laboratory Results - last 24 hr 09/13/18 09/13/18 09/13/18 14:40 14:40 14:40 WBC 9.34 RBC 4.43 Hgb 12.3 Hct 37.7 MCV 85.1 MCH 27.8 MCHC 32.6 L RDW Std Deviation 14.1 Plt Count 128 L MPV 12.3 H Immature Gran % (Auto) 0.5 Neut % (Auto) 79.9 H Lymph % (Auto) 13.8 L Trigg % (Auto) 4.9 Eos % (Auto) 0.6 Baso % (Auto) 0.3 Immature Gran # (Auto) 0.05 H Neut # (Auto) 7.45 H Lymph # (Auto) 1.29 Trigg # (Auto) 0.46 Eos # (Auto) 0.06 Baso # (Auto) 0.03 PT INR PTT (Actin FS) Sodium 135 L Potassium 5.0 Chloride 102 Carbon Dioxide 26 Anion Gap 7 BUN 37 H Creatinine 1.4 H Estimated GFR/1.73 m2 38 BUN/Creatinine Ratio 26 Glucose 278 H Calculated Osmolality 289 Calcium 8.8 Total Bilirubin 0.25 AST 14 ALT 12 Alkaline Phosphatase 86 Creatine Kinase 71 Troponin T [id number] Pept 3928 H Total Protein 6.3 Albumin 3.4 L Globulin 2.9 Albumin/Globulin Ratio 1.2 09/13/18 09/13/18 14:40 14:40 WBC RBC Hgb Hct MCV MCH MCHC RDW Std Deviation Plt Count MPV Immature Gran % (Auto) Neut % (Auto) Lymph % (Auto) Trigg % (Auto) Eos % (Auto) Baso % (Auto) Immature Gran # (Auto) Neut # (Auto) Lymph # (Auto) Trigg # (Auto) Eos # (Auto) Baso # (Auto) PT 13.0 INR 0.91 PTT (Actin FS) 29.8 Sodium Potassium Chloride Carbon Dioxide Anion Gap BUN Creatinine Estimated GFR/1.73 m2 BUN/Creatinine Ratio Glucose Calculated Osmolality Calcium Total Bilirubin AST ALT Alkaline Phosphatase Creatine Kinase Troponin T 0.031 [id number] Pept Total Protein Albumin Globulin Albumin/Globulin Ratio Orders Category Date Time Status Cardiac Monitoring DIRECTED Care 09/13/18 14:28 Active Oxygen Therapy- ED Nursing DIRECTED Care 09/13/18 14:28 Active Saline Loc NOW Care 09/13/18 14:28 Active CHEST-2 VIEWS [RAD] Stat Exams 09/13/18 14:46 Completed CBC WITH ELECTRONIC DIFF [HEME] Stat Lab 09/13/18 14:40 Completed CK PROFILE [SP CHEM] Stat Lab 09/13/18 14:40 Completed COMPREHENSIVE METABOLIC PANEL [CHEM] Stat Lab 09/13/18 14:40 Completed PRO B-NATRIURETIC PEPTIDE Stat Lab 09/13/18 14:40 Completed PROTIME WITH INR [COAG] Stat Lab 09/13/18 14:40 Completed PTT [COAG] Stat Lab 09/13/18 14:40 Completed TROPONIN T Stat Lab 09/13/18 14:40 Completed Aspirin Med 09/13/18 14:28 Discontinued 325 mg PO NOW ONE Nitroglycerin Med 09/13/18 14:42 Discontinued 1 inch TOP NOW ONE CP/SOB/Palp >45 yrs of Age Stat Oth 09/13/18 14:28 Ordered EKG [EKG] Stat Ther 09/13/18 14:28 Ordered Result Diagrams: 09/13/18 14:40 09/13/18 14:40 - REASSESSMENT Reassessment #1 Time Reassessed: 14:46 (pain resolved with nitro) Status: improving Reassessment #2 Time Reassessed: 17:50 Status: unchanged (pt states still only slight "pressure." initial EKG and troponin w/o STEMI/injury. discussed w/ Dr. Boen (who is covering for Dr. Villela): he spoke directly w/ Dr. Villela and told me to admit, Dr. Villela will see pt later today in hospital.) - EKG 1 Time of EKG reading by physician:: 14:29 EKG Read and Signed by:: Noble Linares EKG Interpretation (*Must complete 3 of following elements*): Abnormal Rate: 80 Rhythm: nsr [place]: normal QRS: LVH, other (possible left atrial enlargenet) Comments: possible inferior infarct/anterolateral infarct, age undetermined - XRAY 1 XRAY: Bilateral XRAY Study: Chest Impression: See EMR Report (CHEST-2 VIEWS - 09/13/2018 INDICATION: chest pain COMPARISON: 03/09/2017 FINDINGS: Stable pacemaker. Heart size is top normal. There are some increased markings in the lung bases bilaterally that are identical to prior exams. Probably this is mild fibrosis. No dense infiltrates. No pneumothorax or pleural effusion. IMPRESSION: No change from prior. Electronically signed by Misbah Crain 09/13/2018 3:21 PM 09/13/18 1521 Interpreting Physician: Misbah Crain MD Dictated Date/Time: 09/13/18 1505 cc: Noble Linares MD; Steven Villela MD) Departure - Departure Date of Disposition Decision: 09/13/18 Time of Disposition Decision: 17:51 DIAGNOSIS: Acute chest pain, Tobacco use disorder Disposition: ADMITTED INPATIENT 09 Certified Medical Emergency: Emergent Condition: Stable Referrals and Follow-Ups: Steven Villela MD [Primary Care Provider] - - Critical Care Note This patient required my direct & personal management of CC.: No Attestation - Physician/ DANUTA Attestation Patient care was provided by Advanced Practice Provider:: No The physician spent face to face time with patient:: Yes Advanced Practice Provider documentation review:: Supervising physician onsite and consulted in the evaluation and care of this patient. The physician did have a face to face encounter with the patient. This chart was documented by the indicated scribe, (Sherin Herrera, Lorrie) and accurately reflects the services I performed and decisions made by me, Noble Linares MD, as attested by the provider's signature.
[2018-09-13] MEDS ORDERED: HEPARIN 25,000 UNITS/D5W 25,000 UNIT/250 ML IV.SOLN IV SCH (19:15)
[2018-09-13] MEDS ORDERED: HEPARIN IV ONE (20:00)
[2018-09-13] MEDS: HEPARIN 25,000 UNITS/D5W 25,000 UNIT/250 ML IV.SOLN IV SCH (20:08)
[2018-09-13] MEDS: NICODERM PATCH TD SCH (20:09)
[2018-09-13] MEDS: NITROGLYCERIN TOP SCH (20:09)
[2018-09-13] MEDS: TOPROL XL PO SCH (20:10)
[2018-09-13] MEDS: BRILINTA PO SCH (20:10)
[2018-09-13] MEDS ORDERED: SODIUM CHLORIDE 0.9% INJ SCH (20:30)
[2018-09-13] MEDS: HUMULIN R SUBQ SCH (20:53)
--- NOTE | 2018-09-13 21:14 | HISTORY AND PHYSICAL ---
CHIEF COMPLAINT: Chest pain. HISTORY OF PRESENT ILLNESS: She is a 63-year-old white female who has been in the hospice with terminal CAD. Failed to decline, discharged. Since then, patient has been smoking, came to my office today with chest pain. EKG showed ST elevation in the anterior leads between V2 and V6. The patient was given Nitro paste, aspirin, sent to the emergency room. After workup in the ER, the patient's ST-elevation is decreased and she refused to go to [facility]. She was seen before by Dr. Lo. She is not a candidate for any interventions. At this time, admitted to the hospital for [facility] for medical management. She is still smoking. PAST MEDICAL HISTORY: Allergic rhinitis, chronic COPD on oxygen 3 L, diastolic heart failure, CAD with a stent in the LAD and RCA and circumflex stenosis, metabolic syndrome, hyperlipidemia, hypertension,-nonalcoholic SHAY (nonalcoholic steatohepatitis), peripheral vascular disease with right external iliac artery stenosis, tobacco abuse, umbilical hernia, type 2 diabetes. PAST SURGICAL HISTORY: Stent placement in the LAD, permanent pacemaker in 1993. MEDICINES: Listed are: 1. Nitroglycerin as needed. 2. Pravastatin 40 mg daily. 3. Potassium 20 mEq daily. 4. Advair 250/50 one puff p.o. b.i.d. 5. Ventolin HFA 1 puff q.6h as needed. 6. Nexium 40 mg daily. 7. Singulair 10 mg daily. 8. Glimepiride 2 mg daily. 9. Imdur 30 mg p.o. b.i.d. 10. Lisinopril 10 mg daily. 11. Toprol XL 50 p.o. b.i.d. 12. Brilinta 90 mg p.o. b.i.d. 13. Lasix 80 p.o. b.i.d. 14. Aspirin 81 mg daily. ALLERGIES: 1. Metformin. 2. Trazodone. 3. Promethazine. 4. Ranexa. 5. Plavix. 6. Levaquin. SOCIAL HISTORY: , four children. Smoking since age 15. No alcohol. No drug abuse. FAMILY HISTORY: Father of prostate cancer at 69. Mother of car accident. HEALTH MAINTENANCE: Flu vaccine 2018, pneumococcal 17. Declined colonoscopy, mammography, living will, no intubation, CPR, chemical code agreed. REVIEW OF SYSTEMS: HEENT: No headache, no vision problem. Lungs: On oxygen. Continues to smoke, noncompliant. Neck: No neck pain. Cardiopulmonary: Chest pain going to the back. A little bit shortness of breath. No PND. No orthopnea or swelling of feet. Gastrointestinal: No nausea, vomiting, abdominal pain. Genitourinary: No history of hesitancy, frequency, dysuria. Neurologic: No neurological symptoms or weakness. PHYSICAL EXAMINATION: VITAL SIGNS: Temp is 97.6, pulse 60, blood pressure 173/70. 171 pounds. HEENT: Within normal limits, dusky conjunctiva. NECK: Supple. CHEST: Bilateral air entry. HEART: Heart sounds are regular, distant. ABDOMEN: Belly is soft, obese. EXTREMITIES: 2+ pedal edema in both legs. No signs of gangrene noted. LABORATORY: CBC: White cell count 9.3, hematocrit 37, platelets 128,000. PT 13, INR 0.9. Sodium 135, potassium 5, chloride 102, BUN 37, creatinine 1.4, glucose 278. Troponin was normal. Cardiac enzymes were normal. ProBNP 4000. Albumin 3.4. EKG: Normal sinus with Q-waves in the anterior leads, with ST-elevation decreasing. Chest x-ray: Cardiomegaly. Pacemaker with mild CHF noted. ASSESSMENT AND PLAN: A 63-year-old white female with existing heart disease under the care of Dr. Lo came in with acute [place], ST elevated, resolving, not a candidate for further intervention. Medical management. Plan is admit in [facility]. 1. Aspirin. 2. Brilinta. 3. Toprol-XL 50 p.o. b.i.d. 4. IV heparin. 5. Continue IV Lasix. 6. Check the EKG, echo, serial cardiac enzymes. 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 7. Hypertension, on lisinopril 10 mg daily. 8. Type 2 diabetes, on glimepiride and check the insulin with sliding scale with insulin coverage. 9. Nicotine abuse, on Nicotrol patch. 10. COPD, on oxygen. 11. Hyperlipidemia, on Pravachol. 12. GI prophylaxis with IV Pepcid. 13. Living Will, no intubation. 14. Will follow up. cc: MD CRISTY Orourke
[2018-09-13] MEDS: PEPCID IV SCH (21:54)
[2018-09-13] MEDS ORDERED: AYR NASAL SPRAY NAS PRN (22:41)
[2018-09-14] MEDS: NITROGLYCERIN TOP SCH ×4 (04:04→21:37)
[2018-09-14] MEDS: HUMULIN R SUBQ SCH ×4 (06:05→21:38)
--- NOTE | 2018-09-14 07:05 | EKG Report ---
Test Performed on : 09/14/2018 06:43:56 AM Test Reason : cp Blood Pressure : / mmHG Vent. Rate : 062 BPM Atrial Rate : 062 BPM P-R Int : 178 ms QRS Dur : 090 ms QT Int : 416 ms P-R-T Axes : 042 020 098 degrees QTc Int : 422 ms Atrial-sensed ventricular-paced rhythm Abnormal ECG When compared with ECG of 09-MAR-2017 16:19, Electronic ventricular pacemaker has replaced Sinus rhythm. Confirmed by Aba Tillman MD ([id number]) on 09/20/2018 5:09:24 PM
--- NOTE | 2018-09-14 07:23 | EKG Report ---
Test Performed on : 09/13/2018 2:29:12 PM Test Reason : chest pain Blood Pressure : / mmHG Vent. Rate : 080 BPM Atrial Rate : 080 BPM P-R Int : 158 ms QRS Dur : 080 ms QT Int : 380 ms P-R-T Axes : 036 -06 113 degrees QTc Int : 438 ms Normal sinus rhythm. Possible Left atrial enlargement Left ventricular hypertrophy Possible Inferior infarct , age undetermined Anterolateral infarct , age undetermined Abnormal ECG No previous ECGs available Unconfirmed Result
[2018-09-14] MEDS ORDERED: LASIX IV SCH (09:00)
[2018-09-14] MEDS ORDERED: NICODERM PATCH TD SCH (09:00)
[2018-09-14] MEDS ORDERED: PRINIVIL PO SCH (09:00)
[2018-09-14] MEDS: BRILINTA PO SCH ×2 (09:18→21:37)
[2018-09-14] MEDS: ASPIRIN PO SCH (09:18)
[2018-09-14] MEDS: SINGULAIR PO SCH (09:18)
[2018-09-14] MEDS: PEPCID IV SCH ×2 (09:18→21:37)
[2018-09-14] MEDS: PRAVACHOL PO SCH (09:18)
[2018-09-14] MEDS: TOPROL XL PO SCH ×2 (09:18→21:37)
[2018-09-14] MEDS: NICODERM PATCH TD SCH (09:18)
[2018-09-14] MEDS: KLOR-CON PO SCH (09:18)
--- NOTE | 2018-09-14 10:48 | PROGRESS NOTE ---
DATE: 09/14/2018 Miss Marti has been in congestive heart failure. She is getting IV heparin drip. Her proBNP was 5286. She has some bilateral pulmonary congestion. The current chest x-ray did not show any change from the prior. Besides heparin, she is on 40 mg Lasix IV daily. She had an echocardiogram done today. We will continue with the current management and increase Lasix to 40 mg twice a day. cc: MD Bob Quesada MD
--- NOTE | 2018-09-14 11:58 | CARDIOLOGY CONSULTATION ---
DATE: 09/14/2018 REASON FOR CONSULTATION: Cardiology was consulted for chest pain, heart failure. HISTORY OF PRESENT ILLNESS: Ms. Marti is a 63-year-old, lady who has been in hospice with terminal inoperable coronary artery disease and heart failure. She was in Dr. Son's office and complained of chest pain. The patient was subsequently admitted to the hospital. She has also noticed increasing shortness of breath with episodes of orthopnea, paroxysmal nocturnal dyspnea. She is an inoperable candidate and medical management recommended. She continues to smoke. REVIEW OF SYSTEMS: A 14-point review of systems was done. GI System: There is no history of nausea, vomiting, diarrhea. There is no history of hematemesis or melena. Central Nervous System: No focal weakness to suggest a CVA or TIA. Genitourinary System: There is no dysuria or hematuria. Cardiovascular System: There is no history of palpitations, dizziness, or syncope. PAST MEDICAL HISTORY: 1. Allergic rhinitis. 2. Chronic COPD. 3. Diastolic heart failure. 4. Hyperlipidemia. 5. Nonalcoholic steatohepatitis. 6. Peripheral vascular disease with right external iliac stenosis. 7. Tobacco abuse. 8. Umbilical hernia. 9. Diabetes. 10. Coronary artery disease with severe 3 vessel disease. Patient had a stent placement in the past. Patient was evaluated by cardiac surgeons. Last cardiac catheterization done on 10/07/2016 revealed left ventricular ejection fraction of 60%, left main 30% distal stenosis, left anterior descending artery severe 80% proximal disease, ramus branch [id number] 70-80% stenosis, left circumflex 70-80% with focal lesion, right dominant. Severe atherosclerotic narrowing from proximal to mid with 90% stenosis. The patient was evaluated for coronary artery bypass grafting and intervention. Either patient was deemed inoperable and unfit to undergo coronary intervention. Medical management was recommended. Previous history included stent placement to the left anterior descending artery in 1999, stent placement again in 2003 and 2004. 11. Status post permanent pacemaker implantation for sick sinus syndrome. 12. History of TIA. 13. Adrenal mass. ALLERGIES: Allergic to metformin, trazodone Ranexa, Plavix, Levaquin, promethazine. PHYSICAL EXAMINATION: Vital Signs: Blood pressure was 170/71. Cardiovascular System: Normal jugular venous pressure. First and second heart sounds were heard. There was a faint systolic murmur. Respiratory System: Bibasilar inspiratory crepitations. Abdomen was soft, nontender. There was no guarding or rigidity. Bowel sounds were heard. Central Nervous System: Alert and was moving all 4 extremities. Examination of extremities revealed mild pedal edema. DIAGNOSTIC DATA: Chest x-ray, increased markings noted in the bases bilaterally. LABORATORY EXAMINATION: Hemoglobin 12.3, hematocrit 37, platelet count of 128,000. Sodium 135, potassium 5.0, BUN 37, creatinine 1.4, glucose 278. Troponin and CK-MB negative. Further troponin pending. ProBNP elevated at 5286. CURRENT MEDICATIONS: Include aspirin 162 mg a day, famotidine 20 IV, Lasix 40 mg IV b.i.d., IV heparin, lisinopril 10, metoprolol 50 b.i.d., montelukast, nitroglycerin paste 1 inch q.6 hours, pravastatin 40, Brilinta 90 mg p.o. b.i.d. Electrocardiogram revealed paced rhythm this morning. Yesterday, she had normal sinus rhythm with old inferior myocardial infarction. There were no ST-T changes to suggest infarction. ASSESSMENT AND PLAN: Ms. Aleta Marti is a 63-year-old, lady who is a smoker with severe coronary artery disease, stent placements in the past, inoperable coronary artery disease, peripheral vascular disease, hypertension. Comes with complaints of having increasing chest pains and worsening shortness of breath. So far, her cardiac enzymes are negative. She has other cardiac enzymes pending. She has diastolic heart failure. RECOMMENDATIONS: 1. Continue with the Lasix. 2. As far as coronary artery disease is concerned, she is on aspirin and Brilinta, and she was started on IV heparin. Her cardiac enzymes so far have been negative. We will discontinue the IV heparin. 3. She is intolerant to Ranexa. She is on nitroglycerin as well as beta- blockers and lisinopril 10 mg. Her blood pressure was elevated. I will increase the beta-blockers to 100 mg twice daily. Continue with the WON inhibitors. 4. We will get a chest x-ray in the morning. She had an echocardiogram in the past, revealed preserved systolic function. We will make sure there is no worsening ejection fraction. Thank you for the consult. We will follow hospital course. cc: MD Bob Lane MD MTDD
[2018-09-14] MEDS ORDERED: REQUIP PO PRN (15:38)
[2018-09-14] MEDS: LASIX IV SCH (21:37)
[2018-09-14] MEDS: HEPARIN 25,000 UNITS/D5W 25,000 UNIT/250 ML IV.SOLN IV SCH (21:38)
[2018-09-15] MEDS: ULTRAM PO SCH ×4 (00:49→20:53)
[2018-09-15] MEDS: NITROGLYCERIN TOP SCH (04:47)
[2018-09-15] MEDS ORDERED: NORVASC PO SCH ×3 (05:00→09:00)
[2018-09-15] MEDS: LABETALOL IV PRN ×2 (05:27→12:15)
[2018-09-15] MEDS: HUMULIN R SUBQ SCH ×4 (06:06→21:48)
[2018-09-15 06:24] LABS: CALCIUM 9.2 mg/dL (8.8-10.2); CREATININE 1.5 mg/dL (0.5-0.9); POTASSIUM 4.2 mmol/L (3.5-5.1)
[2018-09-15] MEDS: PEPCID IV SCH ×2 (08:55→20:22)
[2018-09-15] MEDS: NICODERM PATCH TD SCH (08:56)
[2018-09-15] MEDS: LASIX IV SCH (08:56)
[2018-09-15] MEDS: IMDUR PO SCH ×2 (08:56→20:53)
[2018-09-15] MEDS: ZOFRAN IV PRN ×2 (08:56→13:47)
[2018-09-15] MEDS: SINGULAIR PO SCH (08:57)
[2018-09-15] MEDS: BUSPAR PO SCH (08:57)
[2018-09-15] MEDS: KLOR-CON PO SCH (08:57)
[2018-09-15] MEDS: ASPIRIN PO SCH (08:57)
[2018-09-15] MEDS: PRINIVIL PO SCH (08:57)
[2018-09-15] MEDS: BRILINTA PO SCH ×2 (08:57→20:52)
[2018-09-15] MEDS: TOPROL XL PO SCH ×2 (08:57→20:53)
[2018-09-15] MEDS: PRAVACHOL PO SCH (08:57)
[2018-09-15] MEDS: APRESOLINE IV SCH ×2 (14:42→20:22)
[2018-09-15] MEDS: LASIX PO SCH (14:44)
--- NOTE | 2018-09-15 14:49 | Diag Imaging Result Doc PS360 ---
EXAM: CT HEAD W/O CONTRAST 09/15/2018 HISTORY: AMS, HTN, has been on heparin TECHNIQUE: This exam was performed using automated exposure control, adjustment of mA or kV according to patient size, and/or use of iterative reconstruction technique. COMMENT: There is no evidence of mass effect, bleed, or abnormal extra-axial fluid collection. There are patchy lucencies in the white matter surrounding the atria of the lateral ventricles bilaterally but more so on the left than the right. There is a small lacunar lucency in the posterior limb of the internal capsule on the left. The paranasal sinuses are clear. The calvarium is intact. IMPRESSION: Chronic ischemic microvascular changes. Electronically signed by Madhav Haskins 09/15/2018 2:47 PM
--- NOTE | 2018-09-15 15:03 | Diag Imaging Result Doc PS360 ---
EXAM: CT THORAX W/O CONTRAST 09/15/2018 HISTORY: AMS, possible aspiration TECHNIQUE: This exam was performed using automated exposure control, adjustment of mA or kV according to patient size, and/or use of iterative reconstruction technique. COMMENT: There is calcification in the carotid arteries. There are small effusions. There is enlargement of the left adrenal gland. This has not changed since 04/15/2017. There is ill-defined and platelike opacity in both lung bases consistent with atelectasis or pneumonia. There are some scattered blebs. There may be some degree of interstitial edema particularly in the lung bases. There is a nodular opacity in the lingula which has not changed since 10/07/2016. IMPRESSION: Bibasilar atelectasis versus pneumonia plus minus pulmonary edema. Electronically signed by Madhav Haskins 09/15/2018 3:01 PM
--- NOTE | 2018-09-15 15:20 | ECHO REPORT ---
ORDER DATE: 09/13/2018 ECHOCARDIOGRAPHIC MEASUREMENTS: 1. Interventricular septum 1.5. 2. Left ventricular posterior wall 1.2. 3. Diastolic diameter 5.2. 4. Left atrium 3.9. 5. Aorta 2.9. SUMMARY: 1. Mitral valve was normal. 2. Aortic valve leaflets were trileaflet. 3. Tricuspid valve was normal. 4. Pulmonic valve was normal. 5. There is mild pulmonary regurgitation. 6. There is mild tricuspid regurgitation. 7. Peak velocity across the tricuspid valve was 2.8 m/sec. 8. Pulmonary artery systolic pressure 43 mmHg. 9. There is mild mitral regurgitation. 10. Mild pulmonary regurgitation. 11. Pacing leads are noted in the right chamber. 12. Normal left ventricular cavity size. 13. Concentric left ventricular hypertrophy. 14. Estimated ejection fraction of 60%. 15. There is diastolic dysfunction, there is left ventricular hypertrophy. 16. There is no pericardial effusion or obvious intracardiac mass or thrombus seen. cc: MD Bob Lane MD
--- NOTE | 2018-09-15 15:40 | Diag Imaging Result Doc PS360 ---
EXAM: KUB ABDOMEN 09/15/2018 HISTORY: R/O Obstruction TECHNIQUE: KUB COMMENT: There is stool throughout the colon particularly in the rectum. The stomach is not distended. There is a slightly distended loop of small bowel in the left lower quadrant. This is of uncertain significance as there is no evidence of dilated small bowel elsewhere. There is no evidence of organomegaly or mass. IMPRESSION: Constipation. Electronically signed by Madhav Haskins 09/15/2018 3:38 PM
--- NOTE | 2018-09-15 17:15 | PROGRESS NOTE ---
DATE: 09/15/2018 SUBJECTIVE: Interval history was reviewed. Appreciated Dr. Lo's consult. She denies any chest pain. This morning she had nausea, vomiting. Last bowel movement 2 days ago. She is not taking any chronic pain medicines. REVIEW OF SYSTEMS: None reported. PHYSICAL EXAMINATION: Vital Signs: Temperature is 97 degrees, blood pressure is running high. HEENT: Within normal limits. Neck: Supple. Chest: Bilateral air entry. Heart: Sounds are regular. Belly is soft. No masses palpable. Decreased edema. Poor hygiene in both feet noted. No obvious neurological deficits. LABORATORY DATA: Sodium 136, potassium 4.2, BUN 32, creatinine 1.5, sugar is 323. Serial cardiac enzymes, troponin was not active. ProBNP 5386. Echocardiographic report: Normal LV function 60%, diastolic dysfunction, LVH noted. Pulmonary artery pressure 43 mm. ASSESSMENT AND PLAN: 1. Coronary artery disease. Positive chest pain. Positive EKG changes ruled out. Currently on intravenous heparin, slowly discontinue. 2. Hypertension. Optimize the treatment by increasing Norvasc and lisinopril. 3. Nausea, probably check the constipation. Continue on stool softeners. 4. Chronic obstructive pulmonary disease on oxygen. 5. Hyperlipidemia on pravastatin. Quit smoking. Follow up on the labs in the morning. If the cardiac enzymes are negative, discontinue heparin and change to subcutaneous. X-rays noted. 6. Constipation. We will use the Dulcolax and Zofran for nausea. We will also give some stool softeners. Continue present treatment. LEVEL OF DOCUMENTATION: [25]. cc: Bob Son MD MTDD
[2018-09-15] MEDS ORDERED: DEMEROL IV PRN (18:26)
[2018-09-15] MEDS: ATIVAN IV PRN (18:44)
[2018-09-15] MEDS: DULCOLAX PR SCH (20:52)
[2018-09-16] MEDS: APRESOLINE IV SCH ×4 (01:54→21:33)
[2018-09-16] MEDS: ATIVAN IV PRN (01:54)
[2018-09-16] MEDS ORDERED: TYLENOL PR PRN (05:21)
[2018-09-16 05:57] LABS: BASO# 0.02 X1000 (0.0-0.2); BASO% 0.1 % (0.0-0.8); EOS# 0.04 X1000 (0.0-0.7); EOS% 0.2 % (0.0-10.0); HEMATOCRIT 41.1 % (37.0-47.0); HEMOGLOBIN 13.5 g/dL (12.0-16.0); IMM GRAN# 0.09 X1000 (0.0-0.04); IMM GRAN% 0.5 % (0.0-0.5); LYMPH% 10.8 % (20.5-51.1); MCH 27.5 PG (27-31); MCHC 32.8 g/dL (33-37); MCV 83.7 FL (81-99); MONO# 1.24 X1000 (0.11-0.59); MONO% 7.1 % (1.7-9.3); MPV 12.9 FL (7.4-10.4); NEUT# 14.27 X1000 (1.4-6.5); NEUT% 81.3 % (42.2-75.2); PLT 168 X1000 (130-400); RBC 4.91 XMIL (4.2-5.4); RDW 14.3 % (11.5-14.5); WBC 17.56 X1000 (4.8-10.8)
[2018-09-16 06:40] LABS: ALB/GLOB RATIO 0.9; ALBUMIN 3.6 g/dL (3.5-5.0); CALCIUM 8.7 mg/dL (8.8-10.2); CREATININE 3.3 mg/dL (0.5-0.9); POTASSIUM 4.8 mmol/L (3.5-5.1); TOTAL BILIRUBIN 0.47 mg/dL (0.20-1.00); TOTAL PROTEIN 7.6 g/dL (6.3-8.3)
[2018-09-16] MEDS: HUMULIN R SUBQ SCH ×4 (06:45→21:05)
[2018-09-16 07:16] LABS: CK INDEX 1.8 (0.0-2.5); CK-MB 3.63 ng/mL (0.0-5.0)
[2018-09-16] MEDS: PEPCID IV SCH ×2 (08:04→21:33)
[2018-09-16 08:21] LABS: INR 0.94; PROTIME 13.4 Seconds (11.0-16.0)
[2018-09-16 08:27] LABS: ALLEN TEST YES; BE 3.8 mmoll (-3.0-3.0); BLOOD TYPE ARTERIAL; HCO3-(ACT) 27.8 mmoll (20.0-26.0); METHB 0.1 % (0.0-1.5); O2(CT) 16.9 mL/dL (15.0-23.0); O2HB 92.5 % (95.0-99.0); PCO2(98.6) 49 mmHg (35-45); PO2(98.6) 68 mmHg (60-100); SAMPLE BLOOD; pH(98.6) 7.39 (7.35-7.45)
[2018-09-16 08:28] LABS: PTT 30.3 Seconds (22.3-41.8)
[2018-09-16 08:28] LABS: MODALITY CANNULA
[2018-09-16] MEDS: POTASSIUM CHLORIDE 10 MEQ in NS 1,000 ML IV SCH ×3 (08:45→21:00)
--- NOTE | 2018-09-16 08:47 | Diag Imaging Result Doc PS360 ---
EXAM: CHEST-1 VIEW 09/16/2018 HISTORY: Positive sepsis screen protocol TECHNIQUE: AP portable at 0831 COMMENT: The inspiration is suboptimal. There is increased density in both lower lung velez which may in part be due to the degree of inspiration. There is cardiomegaly. IMPRESSION: Questionable pulmonary edema and/or pneumonia. Electronically signed by Madhav Haskins 09/16/2018 8:45 AM
[2018-09-16] MEDS: BRILINTA PO SCH ×2 (09:01→21:01)
[2018-09-16] MEDS: ASPIRIN PO SCH (09:01)
[2018-09-16] MEDS: BUSPAR PO SCH (09:01)
[2018-09-16] MEDS: KLOR-CON PO SCH (09:02)
[2018-09-16] MEDS: IMDUR PO SCH (09:02)
[2018-09-16] MEDS: LASIX PO SCH (09:02)
[2018-09-16] MEDS: MIRALAX PO SCH (09:03)
[2018-09-16] MEDS: NICODERM PATCH TD SCH (09:03)
[2018-09-16] MEDS: NORVASC PO SCH (09:03)
[2018-09-16] MEDS: TOPROL XL PO SCH ×2 (09:04→21:02)
[2018-09-16] MEDS: PRINIVIL PO SCH (09:04)
[2018-09-16] MEDS: PRAVACHOL PO SCH (09:04)
[2018-09-16] MEDS: SINGULAIR PO SCH (09:04)
[2018-09-16] MEDS: ULTRAM PO SCH ×3 (09:05→21:01)
[2018-09-16] MEDS ORDERED: NS 1,000 ML IV ONE (09:54)
[2018-09-16 10:08] LABS: URINE SOURCE CATH
[2018-09-16 10:15] LABS: BILIRUBIN URINE NEGATIVE (NEGATIVE); BLOOD URINE NEGATIVE (NEGATIVE); COLOR YELLOW; GLUCOSE URINE 100 mg/dL (NEGATIVE); KETONE URINE NEGATIVE (NEGATIVE); LEUKOCYTES URINE NEGATIVE (NEGATIVE); NITRITE URINE NEGATIVE (NEGATIVE); PROTEIN URINE 50 mg/dL (NEGATIVE); SP GRAVITY URINE 1.015; TURBIDITY URINE HAZY (CLEAR); UROBILINOGEN URINE NORMAL (NORMAL)
[2018-09-16 10:17] LABS: UR EPITHELIAL CELLS <10 /HPF (<10); URINE BACTERIA NEGATIVE /HPF; URINE RBC <10 /HPF (<10); URINE WBC <10 /HPF (<10)
[2018-09-16] MEDS: ROCEPHIN 1 GM in NS 50 ML IV SCH (10:42)
[2018-09-16] MEDS: NITROGLYCERIN TOP SCH ×3 (11:47→21:02)
--- NOTE | 2018-09-16 12:23 | PROGRESS NOTE ---
DATE: 09/16/2018 VITAL SIGNS: Temperature 98.6 degrees, heart rate 66, respirations 20, blood pressure 96/41, O2 saturation on 2 liters nasal oxygen 96%. LABORATORY: Hemoglobin 13.5, hematocrit 41.1, white blood count 17,500 with 81% neutrophils. Blood gases: A pH 7.39, pCO2 49, PO2 68 on 2 liters nasal oxygen. Sodium 138, potassium 4.8, BUN 45, creatinine 3.3, glucose 224. Troponin-T 0.102. CPK 197. Plasma lactate 1.2. SUBJECTIVE: The patient became less responsive yesterday evening. BUN and creatinine were elevated, as well as white blood count this morning. There is not a known source of infection, but urinalysis is pending. She is started empirically on Rocephin. She also was given a bolus of IV fluids. Fluids were started this morning at 150 mL/hour normal saline with potassium. Blood pressure aliya from a systolic of 80 to 96. She continues to be unresponsive. Apparently, she had advanced directives, but they are not on the chart. She will be made a level 2 DNR with basic CPR and medicines only. There is a long history of severe coronary artery disease. She was on hospice recently. She continues to smoke despite contrary advice. She is not taking any p.o. medications at this time. Nitroglycerin ointment is added. cc: MD Bob Huang MD
--- NOTE | 2018-09-16 12:56 | CARDIOLOGY PROGRESS NOTE ---
DATE: 09/16/2018 CHIEF COMPLAINT: Shortness of breath. SUBJECTIVE: The patient is at this time resting. She really does not want to cooperate very much with examination. OBJECTIVE: Vital signs: Blood pressure is 82/39, temperature 98 degrees, pulse 63, respirations 17. General: She follows minimal commands. HEENT: Unremarkable. Chest: Diminished breath sounds diffusely. Heart: Sounds are regular and rhythmic. No gallop or murmur. Abdomen: Nontender. Extremities: Showed edema. Chest x-ray shows question of pulmonary edema. Telemetry shows activity of dual-chamber pacemaker. BLOOD WORK: Hemoglobin is 13.5, hematocrit 41.1. Sodium 138, potassium 4.8, BUN 45, creatinine 3.3. IMPRESSION: 1. Patient with a history of severe coronary heart disease inoperable. 2. Patient with heart failure diastolic, chronic. 3. Chronic obstructive pulmonary disease. 4. Tobacco user. 5. Peripheral vascular disease. 6. History of diabetes mellitus. 7. Status post pacemaker for sick sinus syndrome. RECOMMENDATIONS: At this time, the patient seems to be comfortable. She seems to have some worsening of her renal function. At this time, we will observe. Her prognosis is really rather poor. According to Dr. Lo's note, she had already been in hospice. PCP may want to consider requesting a hospice consultation. We will follow her along. cc: MD Bob Pichardo MD MTDD
[2018-09-16 18:36] LABS: URINE SOURCE CATH
[2018-09-16 18:49] LABS: BILIRUBIN URINE NEGATIVE (NEGATIVE); BLOOD URINE NEGATIVE (NEGATIVE); COLOR YELLOW; GLUCOSE URINE NEGATIVE (NEGATIVE); KETONE URINE NEGATIVE (NEGATIVE); LEUKOCYTES URINE NEGATIVE (NEGATIVE); NITRITE URINE NEGATIVE (NEGATIVE); PROTEIN URINE NEGATIVE (NEGATIVE); SP GRAVITY URINE 1.017; TURBIDITY URINE CLEAR (CLEAR); UROBILINOGEN URINE NORMAL (NORMAL)
[2018-09-16 18:52] LABS: UR EPITHELIAL CELLS <10 /HPF (<10); URINE BACTERIA NEGATIVE /HPF; URINE RBC <10 /HPF (<10); URINE WBC <10 /HPF (<10)
[2018-09-16 18:59] LABS: URINE CASTS GRANULAR PRESENT; URINE CRYSTALS NONE SEEN; URINE SMALL ROUND CELLS NONE SEEN; URINE YEAST NONE SEEN
[2018-09-16] MEDS: DULCOLAX PR SCH (21:01)
[2018-09-17] MEDS: APRESOLINE IV SCH ×4 (02:20→21:09)
[2018-09-17] MEDS: NITROGLYCERIN TOP SCH ×4 (05:04→21:11)
[2018-09-17] MEDS: POTASSIUM CHLORIDE 10 MEQ in NS 1,000 ML IV SCH ×4 (05:05→23:31)
[2018-09-17 05:50] LABS: BASO# 0.05 X1000 (0.0-0.2); BASO% 0.4 % (0.0-0.8); EOS# 0.08 X1000 (0.0-0.7); EOS% 0.7 % (0.0-10.0); HEMATOCRIT 39.9 % (37.0-47.0); HEMOGLOBIN 12.4 g/dL (12.0-16.0); IMM GRAN# 0.07 X1000 (0.0-0.04); IMM GRAN% 0.6 % (0.0-0.5); LYMPH# 1.69 X1000 (1.2-3.4); LYMPH% 14.4 % (20.5-51.1); MCH 27.3 PG (27-31); MCHC 31.1 g/dL (33-37); MCV 87.7 FL (81-99); MONO# 0.78 X1000 (0.11-0.59); MONO% 6.7 % (1.7-9.3); MPV 12.7 FL (7.4-10.4); NEUT# 9.05 X1000 (1.4-6.5); NEUT% 77.2 % (42.2-75.2); PLT 122 X1000 (130-400); RBC 4.55 XMIL (4.2-5.4); RDW 14.4 % (11.5-14.5); WBC 11.72 X1000 (4.8-10.8)
[2018-09-17] MEDS: HUMULIN R SUBQ SCH ×4 (06:12→21:12)
[2018-09-17 06:18] LABS: CALCIUM 7.7 mg/dL (8.8-10.2); CREATININE 2.7 mg/dL (0.5-0.9); POTASSIUM 4.6 mmol/L (3.5-5.1)
--- NOTE | 2018-09-17 07:08 | Diag Imaging Result Doc PS360 ---
EXAM: CHEST-PORTABLE 09/17/2018 HISTORY: pulmonary edema TECHNIQUE: AP portable at 0545 COMMENT: Compared to 09/16/2018 there has been a definite improvement in the ill-defined opacity in the lung bases particularly the right lower lobe. There appears to be some platelike atelectasis in the right base which was not previously present. Otherwise are has been no significant change. IMPRESSION: Improved pulmonary edema, subsegmental atelectasis on the right. Electronically signed by Madhav Haskins 09/17/2018 7:05 AM
[2018-09-17] MEDS: MIRALAX PO SCH ×2 (07:42→09:17)
[2018-09-17] MEDS: ASPIRIN PO SCH ×2 (07:42→09:15)
[2018-09-17] MEDS: NICODERM PATCH TD SCH ×2 (07:42→09:17)
[2018-09-17] MEDS: KLOR-CON PO SCH ×2 (07:43→09:16)
[2018-09-17] MEDS: PRAVACHOL PO SCH ×2 (07:43→09:17)
[2018-09-17] MEDS: BUSPAR PO SCH ×2 (07:43→09:16)
[2018-09-17] MEDS: PRINIVIL PO SCH ×2 (07:43→09:17)
[2018-09-17] MEDS: NORVASC PO SCH ×2 (07:43→09:17)
[2018-09-17] MEDS: BRILINTA PO SCH ×3 (07:44→21:10)
[2018-09-17] MEDS: TOPROL XL PO SCH ×3 (07:44→21:10)
[2018-09-17] MEDS: ULTRAM PO SCH ×4 (07:44→21:10)
[2018-09-17] MEDS: LASIX PO SCH ×2 (07:44→09:17)
[2018-09-17] MEDS: PEPCID IV SCH ×2 (07:45→21:10)
[2018-09-17] MEDS: SINGULAIR PO SCH ×2 (07:45→09:18)
--- NOTE | 2018-09-17 08:46 | PROGRESS NOTE ---
DATE: 09/17/2018 VITAL SIGNS: Temperature 98.2 degrees, heart rate 75, respirations 17, blood pressure 123/97, O2 saturation on 2 liters nasal oxygen 97%. LABORATORY: Hemoglobin 12.4, hematocrit 39.9, white blood count 11,700 with 77% neutrophils. Sodium 140, potassium 4.6, BUN 50, creatinine 2.7. Improved creatinine since yesterday of 3.3. She is alert and eating breakfast. She seems improved since yesterday. Chest is clear. Abdomen is soft. PLAN: Continue current therapy. cc: MD Bob Huang MD
[2018-09-17] MEDS: ROCEPHIN 1 GM in NS 50 ML IV SCH (10:12)
[2018-09-17] MEDS: DULCOLAX PR SCH (21:11)
[2018-09-18] MEDS: APRESOLINE IV SCH ×4 (02:43→20:31)
[2018-09-18] MEDS: NITROGLYCERIN TOP SCH ×4 (03:32→22:17)
[2018-09-18] MEDS: ZOFRAN IV PRN ×3 (03:50→23:45)
[2018-09-18] MEDS: POTASSIUM CHLORIDE 10 MEQ in NS 1,000 ML IV SCH ×3 (06:03→20:50)
[2018-09-18] MEDS: HUMULIN R SUBQ SCH ×4 (06:03→20:35)
[2018-09-18] MEDS: ASPIRIN PO SCH (08:40)
[2018-09-18] MEDS: MIRALAX PO SCH (08:40)
[2018-09-18] MEDS: BUSPAR PO SCH (08:40)
[2018-09-18] MEDS: NICODERM PATCH TD SCH (08:41)
[2018-09-18] MEDS: NORVASC PO SCH (08:41)
[2018-09-18] MEDS: KLOR-CON PO SCH (08:41)
[2018-09-18] MEDS: TOPROL XL PO SCH ×2 (08:41→20:31)
[2018-09-18] MEDS: ULTRAM PO SCH ×3 (08:41→20:31)
[2018-09-18] MEDS: PRINIVIL PO SCH (08:42)
[2018-09-18] MEDS: SINGULAIR PO SCH (09:18)
[2018-09-18] MEDS: BRILINTA PO SCH ×2 (09:18→20:31)
[2018-09-18] MEDS: PRAVACHOL PO SCH (09:18)
[2018-09-18] MEDS: ROCEPHIN 1 GM in NS 50 ML IV SCH (09:18)
[2018-09-18 09:25] LABS: CALCIUM 7.9 mg/dL (8.8-10.2); CREATININE 1.9 mg/dL (0.5-0.9); POTASSIUM 5.7 mmol/L (3.5-5.1)
[2018-09-18] MEDS: LASIX PO SCH (09:26)
[2018-09-18] MEDS: PEPCID IV SCH ×2 (10:05→20:31)
[2018-09-18] MEDS: DULCOLAX PR SCH (20:35)
--- NOTE | 2018-09-18 21:14 | PROGRESS NOTE ---
DATE: 09/18/2018 Events noted since Tuesday. Patient was nauseated, throwing up, blood pressure was dropped, worsening of azotemia and further workup constipation, since then she started on some IV fluids. Hold the Lasix. She is making good urine output. Patient is poor historian. Appreciated by Dr. Lo consult. EXAMINATION: Temperature is 98 degrees, pulse 70, blood pressure 140/70, oxygen 2 L.Chest: Bilateral air entry. Heart: Sounds regular. Belly: Soft, nontender. Berumen was placed. LABS: Sodium 139, potassium 5.7, BUN 44, creatinine 1.9, glucose 237. Troponin was slightly positive. ProBNP 5000. Urinalysis is clear. Blood cultures were negative. ASSESSMENT AND PLAN: 1. Coronary artery disease. Intravenous heparin was stopped. Positive troponin most likely from chronic kidney disease. 2. Hypotension. Will hold the Norvasc and lisinopril if the systolic blood pressure less than 100. 3. Hyperlipidemia on Pravachol. 4. Chronic pain on tramadol. 5. Nonoperable coronary artery disease and peripheral artery disease. Continue on aspirin. 6. Brilinta 90 p.o. b.i.d. 7. Hyperlipidemia on Pravachol 40 daily. 8. Azotemia. Continue IV fluids, decreased to 80 mL/hour, hold the Lasix, repeat the labs in the morning. 9. Palliative Care consult. Patient wants to go for rehab. Repeat the CBC, SMA 7 in the morning. 10. Living will DNR level 2. LEVEL OF DOCUMENTATION: 25 minutes. cc: Bob Son MD
[2018-09-19] MEDS: NITROGLYCERIN TOP SCH ×3 (03:56→16:34)
[2018-09-19 05:39] LABS: BASO# 0.04 X1000 (0.0-0.2); BASO% 0.3 % (0.0-0.8); EOS# 0.11 X1000 (0.0-0.7); EOS% 0.9 % (0.0-10.0); HEMOGLOBIN 12.4 g/dL (12.0-16.0); IMM GRAN# 0.24 X1000 (0.0-0.04); LYMPH# 0.97 X1000 (1.2-3.4); LYMPH% 8.3 % (20.5-51.1); MCH 26.9 PG (27-31); MCHC 30.2 g/dL (33-37); MCV 88.9 FL (81-99); MONO# 0.68 X1000 (0.11-0.59); MONO% 5.8 % (1.7-9.3); MPV 12.6 FL (7.4-10.4); NEUT# 9.71 X1000 (1.4-6.5); NEUT% 82.7 % (42.2-75.2); PLT 148 X1000 (130-400); RBC 4.61 XMIL (4.2-5.4); RDW 14.6 % (11.5-14.5); WBC 11.75 X1000 (4.8-10.8)
[2018-09-19] MEDS: HUMULIN R SUBQ SCH ×3 (06:12→16:39)
[2018-09-19 06:19] LABS: CALCIUM 8.8 mg/dL (8.8-10.2); CREATININE 1.7 mg/dL (0.5-0.9)
[2018-09-19 06:24] LABS: POTASSIUM 6.1 mmol/L (3.5-5.1)
[2018-09-19] MEDS: ATIVAN IV PRN (06:25)
[2018-09-19] MEDS ORDERED: NS 1,000 ML ONE (07:08)
[2018-09-19] MEDS ORDERED: CALCIUM CHLORIDE SYRINGE IV ONE (07:08)
[2018-09-19] MEDS ORDERED: D50W SYRINGE IV ONE (07:58)
[2018-09-19] MEDS ORDERED: HUMALOG IV ONE (07:59)
[2018-09-19] MEDS ORDERED: NS 1,000 ML IV SCH (08:00)
[2018-09-19] MEDS ORDERED: MAGNESIUM SULFATE 2 GM/S.W.I. 2 GM/50 ML IVPB IV ONE (08:01)
[2018-09-19] MEDS ORDERED: CORDARONE 360 MG/D5W 360 MG/200 ML IV.SOLN IV ONE (08:02)
--- NOTE | 2018-09-19 08:23 | Diag Imaging Result Doc PS360 ---
EXAM: CHEST-1 VIEW 09/19/2018 HISTORY: SOB TECHNIQUE: Portable upright chest at 0811 COMMENT: There is cardiomegaly. There is increased pulmonary vascularity. There are pleural fluid collections present bilaterally and interstitial and alveolar opacity is present which is worse than on 09/17/2018. This is particularly severe in the mid right lung field and in the left base laterally. IMPRESSION: Definitely worsened pulmonary edema plus minus pneumonia with bilateral pleural effusions. Electronically signed by Madhav Haskins 09/19/2018 8:21 AM
[2018-09-19] MEDS ORDERED: HUMULIN R IV ONE (08:34)
--- NOTE | 2018-09-19 09:16 | Diag Imaging Result Doc PS360 ---
EXAM: CT HEAD W/O CONTRAST INDICATION: AMS TECHNIQUE: This exam was performed using automated exposure control, adjustment of mA or kV according to patient size, and/or use of iterative reconstruction technique. COMPARISON: 09/15/2018 FINDINGS: There is no definite acute infarct given the limited sensitivity of CT versus MRI. There is no discrete intracranial mass, mass effect, or intracranial hemorrhage. The surrounding soft tissues and bony structures are essentially unremarkable. IMPRESSION: Stable CT head with no definite acute pathology. Electronically signed by Yosef Lyons 09/19/2018 9:14 AM
[2018-09-19] MEDS: NICODERM PATCH TD SCH (12:31)
[2018-09-19] MEDS: ROCEPHIN 1 GM in NS 50 ML IV SCH (12:31)
[2018-09-19] MEDS: PEPCID IV SCH (12:33)
[2018-09-19] MEDS ORDERED: ATIVAN IV PRN (13:25)
[2018-09-19] MEDS ORDERED: ATROPINE 1 % OPHTH SOLN SL PRN (13:27)
[2018-09-19] MEDS ORDERED: CORDARONE 540 MG in D5W 289.2 ML IV ONE (15:00)
[2018-09-19] MEDS: BRILINTA PO SCH (15:39)
[2018-09-19] MEDS: LASIX PO SCH (15:41)
[2018-09-19] MEDS: ULTRAM PO SCH (15:44)
[2018-09-19] MEDS: TOPROL XL PO SCH (15:44)
[2018-09-19] MEDS: SINGULAIR PO SCH (15:45)
[2018-09-19] MEDS: BUSPAR PO SCH (15:46)
[2018-09-19] MEDS: PRINIVIL PO SCH (15:46)
[2018-09-19] MEDS: KLOR-CON PO SCH (15:47)
[2018-09-19] MEDS: PRAVACHOL PO SCH (15:47)
[2018-09-19] MEDS: NORVASC PO SCH (15:49)
[2018-09-19] MEDS: MIRALAX PO SCH (15:49)
[2018-09-19] MEDS: MORPHINE IV PRN ×3 (15:55→19:50)
[2018-09-19 20:07] VITALS: BP 138/55
== END 2018-09-19 19:39 | disposition hospice, inpatient (51) | DRG 280 ==
LOC: SUPCPDRO → ED 14:24 → 3S 17:57
PROVIDERS: ADMIT Internal Medicine; ATTEND Internal Medicine
CPT/HCPCS: 70450; 71010; 71020; 71045; 71046; 71250; 74000; 74018; 80048; 80053; 81001; 82550; 82553; 82805; 82948; 83605; 83735; 83880; 84484; 85025; 85610; 85730; 87040; 93005; 93010; 93306; 94660; 94761; 99285; A9270; J0282; J0360; J0696; J1644; J1940; J2060; J2270; J2405; J3475; J3480; J7030; S0028; XXXXX

== ENCOUNTER 2018-09-19 19:41 | Inpatient (IN) ==
--- NOTE | 2018-09-19 21:01 | PROGRESS NOTE ---
DATE: 09/19/2018 LEVEL 3 DOCUMENTATION: I was called stat, Code Blue, at 7:00 in the morning. Patient was unresponsive. CAT team was called in. Patient has a Do Not Resuscitate level 2. CPR was initiated. Subsequently, patient got rhythm and blood pressure. Patient was placed on BiPAP, and she was doing fine until 6 in the morning. REVIEW OF SYSTEMS: None reported. PHYSICAL EXAMINATION: Vital Signs: Heart rate is 60. Blood pressure is stable, unresponsive, on BiPAP. front desk monitor reported ventricular fibrillation arrest with anoxic encephalopathy. Chest: Bilateral air entry. Heart: Sounds are regular. Abdomen: Belly is soft, nontender. Extremities: Not moving all the extremities. INVESTIGATIONS: CBC: White cell count 11, hematocrit 41, platelets 148,000. Sodium 137, potassium 6, chloride 108 BUN 43, creatinine 1.7, glucose 192. Blood cultures were negative. ASSESSMENT AND PLAN: 1. Cardiac arrest due to ventricular fibrillation, with underlying coronary artery disease. 2. Unresponsive. 3. Hyperkalemia. 4. Azotemia. 5. Peripheral arterial disease. 6. Chronic obstructive pulmonary disease. PLAN OF CARE: 1. D50 followed by insulin. 2. CT head. 3. Chest x-ray. 4. Intravenous Cordarone drip. 5. BiPAP. 6. Living Will, Do Not Resuscitate 2. 7. Nursing staff discussed with family members in [place]. Changed the code status to Do Not Resuscitate 1, and will initiate palliative care consult, and will see the response. Prognosis is grim. LEVEL OF DOCUMENTATION: 35 minutes. cc: Bob Son MD
[2018-09-19] MEDS: ATIVAN IV PRN (21:09)
[2018-09-19] MEDS ORDERED: TRANSDERM-SCOP TD SCH (21:15)
[2018-09-19] MEDS: MORPHINE IV PRN ×2 (22:21→23:43)
[2018-09-19] MEDS ORDERED: SALINE LOCK IV FLUID XX ONE (22:34)
[2018-09-20] MEDS: MORPHINE IV PRN ×3 (01:55→12:05)
[2018-09-20] MEDS: ATIVAN IV PRN ×3 (03:23→11:30)
[2018-09-20 07:56] VITALS: BP 58/41
[2018-09-20] MEDS ORDERED: ATROPINE 1 % OPHTH SOLN SL PRN (12:22)
== END 2018-09-20 12:40 | disposition expired | DRG 189 ==
LOC: 3S 19:41 → 4N 22:56 → UNDODISIN 09-20 12:40
PROVIDERS: ADMIT Internal Medicine; ATTEND Internal Medicine
CPT/HCPCS: A9270; J2060; J2270